=== PATIENT | female | born 1930 | race Caucasian/White ===

== ENCOUNTER 2016-04-17 16:13 | Inpatient (IN) | payer MEDICARE, MEDICAID ==
[~2016-04-17] VITALS: Ht 162.6 cm; Wt 87.8 kg
--- NOTE | ~2016-04-17 | WRIGHTHP ---
[place], [place] PATIENT HISTORY AND PHYSICAL EXAM NAME: ZAC MARY [facility] #: [id number] UNIT #: [id number] ROOM: [facility] DOCTOR: MITZI HAN MD BIRTHDATE: [birth year] DOS: HISTORY OF PRESENT ILLNESS: This patient is very well known to us. She was visiting Dr. Li's office yesterday for an appointment when she was found to be short of breath on exertion and Dr. Li felt that that the patient was in AFib, was sent to the emergency room for evaluation. The patient had paroxysmal atrial fibrillation in remote past, but not recently. She was last evaluated with a stress test in 06/2015 before her knee replacement and that was normal. She noted that for the last few days, she has noticed some increasing shortness of breath and leg edema. She has had chronic lymphedema bilaterally. She denies having any chest pains or palpitations, does not have any fever or chills, does not have any abdominal pain, nausea, any emesis. PAST MEDICAL HISTORY: Significant for; 1. Benign hypertension. 2. Centrilobular emphysema secondary to secondhand smoking. 3. Postmenopausal osteoporosis. 4. Severe degenerative joint disease, status post knee and hip replacements. The last left knee replacement was quite complicated with the redo of the knee from an infection and abscess formation. She has been on antibiotics since August, which Dr. Li has just discontinued. MEDICATIONS: That she has been on are amlodipine 10, atenolol 50, lisinopril 5, Lasix 60, Arthrotec 75, Tylenol 650 p.r.n. and Florastor 250 daily. SOCIAL HISTORY: Nonsmoker, does not use any alcohol. PHYSICAL EXAMINATION: GENERAL: The patient is awake and alert and oriented, in no major distress this morning. VITAL SIGNS: Graphic trend shows that she is afebrile. Pressure is 132/78, at the time she was admitted, her heart rate is in the 90s, and then she was controlled. When I was talking to the patient, she was excited about what had happened in the last 6 months and her heart rate did go up into the 130s and again she remained without any complaints of palpitations. LUNGS: On examination otherwise, lung diminished breath sounds. HEART: Irregular, heart rate in the 90s-130s. ABDOMEN: Obese, soft. EXTREMITIES: Trace edema bilaterally. The left knee seems to have completely healed. LABORATORY DATA: At the time of admission, WBC count is 7.2, hemoglobin 10.6, hematocrit 35.7, platelets 91,000. Chest x-ray shows mild pulmonary venous congestion. Comprehensive, glucose 98, BUN 14. Electrolytes were normal. Three sets of CPKs have been done, they all within normal limits. ASSESSMENT AND PLAN: 1. New onset AFib with history of AFib a few years ago. The patient has been admitted, rate control to be achieved with beta blockers. Consultation with Dr. Burroughs was obtained and they have started her on IV Cardizem. She also has [place], [place] PATIENT HISTORY AND PHYSICAL EXAM NAME: ZAC MARY [facility] #: [id number] UNIT #: [id number] ROOM: [facility] DOCTOR: MITZI HAN MD BIRTHDATE: [birth year] been placed on Eliquis for long-term anticoagulation. 2. Mild congestive heart failure, acute diastolic. Echocardiogram will be ordered. Her last echocardiogram was done in 04/2015 shows normal ejection fraction with diastolic dysfunction. Repeat echo will be ordered this morning. She did diurese and had about 1400 mL output with the Bumex that was given during the night, so we will continue the same diuretics. 3. Benign hypertension with LVH, controlled. 4. Severe osteoarthritis with recent complications following a knee replacement. There does not appear to be any active infection, so no antibiotics have been ordered. 5. Possible UTI, 50,000 colonies of bacteria was seen. Await until I see what the final cultures are before we start her on antibiotics. MITZI HAN MD CM:HISPHYS:PATIENT HISTORY AND PHYSICAL EXAMINATION 1014 MITZI HAN MD 04/18/16 1013 interface
--- NOTE | ~2016-04-17 | PR ---
[place], [place] PROGRESS NOTE [id number] UN[facility] #: [id number] ROOM: 510 DOCTOR: ZAINAB HER MD BIRTHDATE: [birth year] DOS: 04/20/2016 Please make this as an addendum to yesterday's discharge summary and progress note for today. SUBJECTIVE: The patient could not be discharged yesterday because she developed tachycardia up to the heart rate of 150 beats per minute and was held back by her slab installer, Dr. Mondragon. He also added long acting Cardizem to her treatment and her heart rate has improved. OBJECTIVE: VITAL SIGNS: Blood pressure 118/68, heart rate 66 beats per minute, breathing 16 times per minute, temperature 98 degrees Fahrenheit. GENERAL APPEARANCE: The patient is alert and oriented x 3, in no visible distress. HEENT AND NECK: Exam within normal limits. CARDIOVASCULAR SYSTEM: Heart rate is regular in rate and rhythm. S1 and S2 normally audible. LUNGS: Clear to auscultation. ABDOMEN: Soft, nontender. No obvious organomegaly. Bowel sounds are present. EXTREMITIES: Without significant cyanosis or edema. IMPRESSION: 1. The patient with chronic atrial fibrillation with tachycardia yesterday, which is better controlled with oral Cardizem. Dr. Mondragon, her slab installer has given her clearance for discharge to home and will follow her up in the office in 1 week and she will also follow up with her PCP. 2. Acute diastolic type congestive heart failure, resolved with treatment. 3. Benign essential hypertension and LVH with controlled blood pressures. 4. Urinary tract infection with Escherichia coli to be treated with Bactrim-DS for a week. ZAINAB HER MD CM:PNTRANS [id number] ZAINAB HER MD 04/21/16 1002 interface
--- NOTE | ~2016-04-17 | DS ---
[place], [place] DISCHARGE SUMMARY NAME: ZAC MARY UNIT #: [id number] ROOM: 510 DOCTOR: ZAINAB HER MD BIRTHDATE: [birth year] DOS: 04/19/2016 DISCHARGE DIAGNOSES: 1. Chronic atrial fibrillation with tachycardia, now controlled with new medications. The patient anticoagulated with Eliquis for atrial fibrillation. 2. Acute diastolic type CHF, acute on chronic, resolved with treatment. 3. Benign essential hypertension and LVH. 4. Severe osteoarthritis involving multiple joints. 5. Urinary tract infection with E. coli, sensitive to all antibiotics. The patient will be treated with Bactrim-DS for 1 week. FOLLOWUP: The patient to follow up with Dr. Mccurdy, her PCP, and also Dr. Mondragon, senior project engineer within a week after discharge. HOSPITAL COURSE: The patient was admitted by Dr. Mccurdy when she presented with complaints of shortness of breath at her senior project engineer's office, Dr. Li, and was in atrial fibrillation with elevated heart rate. The patient was admitted by Dr. Mccurdy for atrial fibrillation with rapid ventricular response, which was controlled with IV Cardizem by the senior project engineer. Finally, he converted her to a higher-dose of metoprolol and he discontinued her atenolol and heart rates are ranging between 80-120 on the environmental monitoring technician. 1. Chronic atrial fibrillation. The patient was started on Eliquis for anticoagulation by Dr. Mondragon, her senior project engineer. 2. Acute over chronic diastolic type CHF, improved with better controlled of heart rate and blood pressures. The patient diuresed well with IV Bumex. 3. Benign essential hypertension with better controlled blood pressures now. 4. Centrilobular emphysema with chronic shortness of breath secondary to secondhand smoke in the past. Breathing is stable. 5. Severe osteoarthritis involving multiple joints and status post knee replacement. 6. Urinary tract infection with E. coli, 75,000 colonies to be treated with Bactrim-DS at home at the time of discharge. Prescriptions were sent to her pharmacy. [place], [place] DISCHARGE SUMMARY NAME: ZAC MARY UNIT #: [id number] ROOM: 510 DOCTOR: ZAINAB HER MD BIRTHDATE: [birth year] ZAINAB HER MD CM:KAYLA [phone] ZAINAB HER MD 04/19/16 2004 interface
[~2016-04-17 16:13] MED LIST changes: -BUMETANIDE1 MG PO; -CARDIZEM CD120 M2 PO; -ELIQUIS5 M1 PO; -FLORASTOR250 MG PO; -MACROBID100 M1 PO; -TOPROL XL100 MG PO
[2016-04-17 16:15] VITALS: BP 149/86
[2016-04-17 16:42] LABS: BASO # 0.1 10*3/uL (0.0-0.1); BASO % 0.7 % (0.0-1.0); EOS # 0.1 10*3/uL (0.0-0.4); EOS % 1.2 % (1.0-4.0); HEMATOCRIT 35.7 % (37.0-47.0); HEMOGLOBIN 10.6 g/dl (12.0-16.0); LYMPH % 13.7 % (27.0-41.0); MEAN CELL VOLUME 85.2 fl (81.0-99.0); MEAN CORPUSCULAR HGB 25.3 pg (27.0-31.0); MEAN CORPUSCULAR HGB CONC 29.7 g/dl (33.0-37.0); MEAN PLATELET VOLUME 13.1 fl (9.6-12.3); MONO # 0.7 10*3/uL (0.1-1.0); NEUT # 5.4 10*3/uL (2.3-7.9); NEUT % 75.1 % (47.0-73.0); PLATELET COUNT AUTOMATED 91 10*3/uL (130-400); RED BLOOD COUNT 4.19 10*6/uL (4.10-5.10); WHITE BLOOD COUNT 7.2 10*3/uL (4.8-10.8)
[2016-04-17 16:57] LABS: ALBUMIN 3.3 gm/dl (3.1-4.5); ALKALINE PHOSPHATASE 132 U/L (45-117); BILIRUBIN, TOTAL 0.5 mg/dl (0.2-1.0); BUN 14 mg/dl (7-24); CARBON DIOXIDE 28 mmol/L (21-32); CHLORIDE 107 mmol/L (98-107); EST GLOM FILT AFRICAN AMERICAN > 60 ml/min; GLUCOSE 98 mg/dL (65-99); POTASSIUM 4.1 mmol/L (3.5-5.1); SGOT/AST 16 IU/L (3-35); SGPT/ALT 31 U/L (12-78); SODIUM 143 mmol/L (136-145); TOTAL PROTEIN 6.7 gm/dL (6.4-8.2)
[2016-04-17 17:07] LABS: BILIRUBIN NEGATIVE (NEGATIVE); BLOOD TRACE-LYSED (NEGATIVE); CLARITY SL CLOUDY (CLEAR); COLOR YELLOW (YELLOW); GLUCOSE NEGATIVE (NEGATIVE); KETONE TRACE (NEGATIVE); LEUKO ESTERASE TRACE (NEGATIVE); NITRITE NEGATIVE (NEGATIVE); PH 5.5 (5.0-9.0); PROTEIN 1+ (NEGATIVE); SPECIFIC GRAVITY 1.025 (1.005-1.030)
[2016-04-17 17:11] VITALS: BP 147/77
[2016-04-17 17:25] VITALS: BP 143/78
[2016-04-17 17:26] LABS: MUCOUS TRACE; URINE REFLEX COMMENT YES (NO)
[2016-04-17 18:20] VITALS: BP 114/74
[2016-04-17] MEDS ORDERED: FLORASTOR250 MG PO (19:20)
[2016-04-17 20:00] VITALS: BP 130/63
[2016-04-18] VITALS (11 sets, daily range): BP systolic 104–142; BP diastolic 50–72
[2016-04-18 00:51] LABS: CKMB 1.6 ng/ml (0.5-3.6)
[2016-04-18 07:09] LABS: BUN 13 mg/dl (7-24); CARBON DIOXIDE 28 mmol/L (21-32); CHLORIDE 105 mmol/L (98-107); EST GLOM FILT AFRICAN AMERICAN > 60 ml/min; GLUCOSE 90 mg/dL (65-99); POTASSIUM 3.7 mmol/L (3.5-5.1); SODIUM 144 mmol/L (136-145)
[2016-04-18 07:10] LABS: BASO % 0.6 % (0.0-1.0); EOS # 0.1 10*3/uL (0.0-0.4); EOS % 2.6 % (1.0-4.0); HEMATOCRIT 31.5 % (37.0-47.0); HEMOGLOBIN 9.4 g/dl (12.0-16.0); LYMPH # 0.9 10*3/uL (1.3-4.4); LYMPH % 17.5 % (27.0-41.0); MEAN CELL VOLUME 83.8 fl (81.0-99.0); MEAN CORPUSCULAR HGB CONC 29.8 g/dl (33.0-37.0); MEAN PLATELET VOLUME 12.2 fl (9.6-12.3); MONO # 0.5 10*3/uL (0.1-1.0); MONO % 10.2 % (3.0-9.0); NEUT # 3.5 10*3/uL (2.3-7.9); NEUT % 68.7 % (47.0-73.0); PLATELET COUNT AUTOMATED 101 10*3/uL (130-400); RED BLOOD COUNT 3.76 10*6/uL (4.10-5.10); WHITE BLOOD COUNT 5.1 10*3/uL (4.8-10.8)
[2016-04-18 07:52] LABS: CKMB 1.6 ng/ml (0.5-3.6)
[2016-04-18 16:47] LABS: CKMB 1.1 ng/ml (0.5-3.6)
[2016-04-19] VITALS: BP 125/60
[2016-04-19 04:00] VITALS: BP 137/82
[2016-04-19 08:00] VITALS: BP 134/72
[2016-04-19 12:00] VITALS: BP 118/63
[2016-04-19 16:00] VITALS: BP 111/61
[2016-04-19] MEDS ORDERED: TOPROL XL100 MG PO (18:35)
[2016-04-19] MEDS ORDERED: ELIQUIS5 M1 PO (18:36)
[2016-04-19] MEDS ORDERED: BACTRIM DS 8001 TA1 PO (18:43)
[2016-04-19 20:00] VITALS: BP 97/70
[2016-04-20] VITALS: BP 102/58
[2016-04-20 04:00] VITALS: BP 109/56
[2016-04-20 08:00] VITALS: BP 116/62
[2016-04-20 12:00] VITALS: BP 118/68
[2016-04-20] MEDS ORDERED: CARDIZEM CD120 M2 PO (13:52)
[2016-04-20] MEDS ORDERED: BUMETANIDE1 MG PO (14:33)
[2016-06-04] MEDS ORDERED: MACROBID100 M1 PO (11:42)
== END 2016-04-20 14:52 | disposition home or self-care (01) | DRG 308 ==
LOC: ED 16:13 → 5E 17:11 → EDHOLD 17:11 → 5E 18:01
PROVIDERS: Internal Medicine; Nurse Practitioner Family
DX: I48.0 Paroxysmal atrial fibrillation (principal); I50.33 Acute on chronic diastolic (congestive) heart failure; N39.0 Urinary tract infection, site not specified; D64.9 Anemia, unspecified; I48.2 Chronic atrial fibrillation; I11.0 Hypertensive heart disease with heart failure; J43.2 Centrilobular emphysema; M15.9 Polyosteoarthritis, unspecified; B96.20 Unspecified Escherichia coli [E. coli] as the cause of diseases classified elsewhere; K44.9 Diaphragmatic hernia without obstruction or gangrene; Z96.652 Presence of left artificial knee joint; Z96.649 Presence of unspecified artificial hip joint; Z80.9 Family history of malignant neoplasm, unspecified; Z79.899 Other long term (current) drug therapy

== ENCOUNTER → 2016-04-17 | Outpatient (CLI) | payer MEDICARE, MEDICAID ==
[~2016-04-17] MED LIST: AMLODIPINE BESY1 TAB PO; AMLODIPINE BESY10 MG PO; AMLODIPINE BESYL5 MG PO; ANTIVERT/2525 MG PO; ARTHROTEC 75 MG PO; ARTHROTEC50 MG PO; ATENOLOL100 MG PO; ATENOLOL25 MG PO; ATIVAN1 MG PO; BACTRIM DS 8001 TA1 PO; BENADRYL25 M2 PO; BUMETANIDE1 MG PO; CARDIZEM CD120 M2 PO; CEFAZOLIN500 MG IJ; COUMADIN0.5 MG PO; ELIQUIS5 M1 PO; ESIDREX,ORETIC,25 MG PO; FLORASTOR250 MG PO; LASIX40 MG PO; LISINOPRIL5 MG; LISINOPRIL5 MG PO; LOTRISONE 0.05%1 CRE TP; MACROBID100 M1 PO; MECLIZINE HCL25 M1 PO; NORVASC2.5 MG PO; NORVASC5 MG PO; PRILOSEC20 MG PO; RABEPRAZOLE PO; Rimactane,Rifa300 MG PO; TENORMIN50 MG PO; TOPROL XL100 MG PO; TYLENOL EXTRA500 M2 PO; TYLENOL325 M1 PO; ULTRAM50 MG PO; ZOFRAN ODT4 MG SL; ZOFRAN4 MG PO; ZYVOX600 M1 IV; [UNRECOGNIZED DRUG - OTHER] PO
== END | disposition home or self-care (01) ==
LOC: CARD 15:15
DX: R00.1 Bradycardia, unspecified (principal)

== ENCOUNTER → 2016-05-02 | Outpatient (CLI) | payer MEDICARE, MEDICAID ==
[~2016-05-02] MED LIST changes: +BUMETANIDE1 MG PO; +CARDIZEM CD120 M2 PO; +ELIQUIS5 M1 PO; +FLORASTOR250 MG PO; +MACROBID100 M1 PO; +TOPROL XL100 MG PO
[2016-05-02 12:09] LABS: ALBUMIN 3.5 gm/dl (3.1-4.5); ALKALINE PHOSPHATASE 101 U/L (45-117); BILIRUBIN, TOTAL 0.4 mg/dl (0.2-1.0); BUN 19 mg/dl (7-24); CARBON DIOXIDE 29 mmol/L (21-32); CHLORIDE 104 mmol/L (98-107); EST GLOM FILT AFRICAN AMERICAN > 60 ml/min; GLUCOSE 100 mg/dL (65-99); POTASSIUM 4.6 mmol/L (3.5-5.1); SGOT/AST 15 IU/L (3-35); SGPT/ALT 20 U/L (12-78); SODIUM 141 mmol/L (136-145)
== END | disposition home or self-care (01) ==
LOC: LAB 11:11
PROVIDERS: Internal Medicine Cardiovascular Disease
DX: I50.30 Unspecified diastolic (congestive) heart failure (principal); I49.9 Cardiac arrhythmia, unspecified; I48.2 Chronic atrial fibrillation

== ENCOUNTER → 2017-07-03 | Outpatient (CLI) | payer MEDICARE ==
[2017-07-03 10:24] LABS: BASO # 0.1 10*3/uL (0.0-0.1); BASO % 0.9 % (0.0-1.0); EOS # 0.1 10*3/uL (0.0-0.4); EOS % 1.9 % (1.0-4.0); HEMATOCRIT 41.6 % (37.0-47.0); HEMOGLOBIN 12.2 g/dl (12.0-16.0); LYMPH # 1.1 10*3/uL (1.3-4.4); LYMPH % 16.6 % (27.0-41.0); MEAN CELL VOLUME 83.9 fl (81.0-99.0); MEAN CORPUSCULAR HGB 24.6 pg (27.0-31.0); MEAN CORPUSCULAR HGB CONC 29.3 g/dl (33.0-37.0); MEAN PLATELET VOLUME 12.5 fl (9.6-12.3); MONO # 0.6 10*3/uL (0.1-1.0); MONO % 9.4 % (3.0-9.0); NEUT # 4.5 10*3/uL (2.3-7.9); NEUT % 70.7 % (47.0-73.0); PLATELET COUNT AUTOMATED 121 10*3/uL (130-400); RED BLOOD COUNT 4.96 10*6/uL (4.10-5.10); RED CELL DISTRI WIDTH 15.9 % (0-14.5); WHITE BLOOD COUNT 6.4 10*3/uL (4.8-10.8)
[2017-07-03 10:39] LABS: BUN 14 mg/dl (7-24); CHLORIDE 105 mmol/L (98-107); CREATININE 0.67 mg/dL (0.55-1.02); POTASSIUM 3.9 mmol/L (3.5-5.1); SODIUM 141 mmol/L (136-145)
== END | disposition home or self-care (01) ==
LOC: LAB 09:52
PROVIDERS: Internal Medicine
DX: Z13.220 Encounter for screening for lipoid disorders (principal); Z13.21 Encounter for screening for nutritional disorder; N39.0 Urinary tract infection, site not specified; E55.9 Vitamin D deficiency, unspecified; R53.81 Other malaise

== ENCOUNTER → 2017-07-04 | Outpatient (CLI) | payer MEDICARE ==
[2017-07-04 11:42] LABS: BILIRUBIN NEGATIVE (NEGATIVE); BLOOD NEGATIVE (NEGATIVE); CLARITY SL CLOUDY (CLEAR); COLOR YELLOW (YELLOW); GLUCOSE NEGATIVE (NEGATIVE); KETONE TRACE (NEGATIVE); LEUKO ESTERASE NEGATIVE (NEGATIVE); NITRITE NEGATIVE (NEGATIVE); PH 5.5 (5.0-9.0); SPECIFIC GRAVITY 1.025 (1.005-1.030); UROBILINOGEN 0.2 E.U./dl (0.2-1.0)
[2017-07-04 13:29] LABS: BACTERIA 2+; CALCIUM OXALATE CRYSTALS 2+; EPITHELIAL CELLS 20-30
== END | disposition home or self-care (01) ==
LOC: LAB 11:10
PROVIDERS: Internal Medicine
DX: Z13.21 Encounter for screening for nutritional disorder (principal); Z13.220 Encounter for screening for lipoid disorders; N39.0 Urinary tract infection, site not specified; R53.81 Other malaise; E55.9 Vitamin D deficiency, unspecified

== ENCOUNTER 2017-12-29 06:31 | Inpatient (IN) | payer MEDICARE ==
[~2017-12-29] VITALS: Ht 165.1 cm; Wt 96.3 kg
[2017-12-29] VITALS (8 sets, daily range): BP systolic 124–166; BP diastolic 72–91
--- NOTE | ~2017-12-29 | PR ---
[place], [place] PROGRESS NOTE NAME: ZAC MARY [facility] #: [id number] UNIT #: [id number] ROOM: 520 DOCTOR: MITZI HAN MD BIRTHDATE: [birth year] DOS: 12/30/2017 SUBJECTIVE: The patient is doing much better than yesterday. Her cough is almost completely gone. OBJECTIVE: VITAL SIGNS: Graphic trend shows a pressure of 126/65, pulse of 73, respirations 18, temperature 98.1. LUNGS: Diminished breath sounds, fairly clear this morning. HEART: Irregular, heart rate in the 70s. ABDOMEN: Obese, soft. EXTREMITIES: Without decreased edema noted. LABORATORY DATA: No basic metabolic panel is available today. ASSESSMENT AND PLAN: 1. Congestive heart failure, diastolic, acute. 2. Hypoxic respiratory failure, still requiring oxygen supplementation about 4 liters. 3. Chronic atrial fibrillation with long-term use of anticoagulants controlled heart rate. 4. Cough with basilar atelectasis, possibly hiding pneumonia, on antibiotics. 5. Urinary tract infection with gram-negative bacteria, also on antibiotics. Complete culture results are not available yet. For right now, continue diuretics. Consultation with Dr. Burroughs will be obtained. Echocardiogram is ordered. MITZI HAN MD CM:PNTRANS 7 08 MITZI HAN MD 12/30/172206 interface
--- NOTE | ~2017-12-29 | PR ---
[place], [place] PROGRESS NOTE [id number] UNIT #: [id number] ROOM: 520 DOCTOR: ZAINAB HER MD BIRTHDATE: [birth year] DOS: 01/03/2018 SUBJECTIVE: The patient is feeling well. OBJECTIVE: VITAL SIGNS: Blood pressure is 124/62, heart rate of 60 beats per minute, going up to 150 beats per minute; breathing normally, and afebrile. GENERAL APPEARANCE: The patient is alert and oriented x 3, in no visible distress. HEENT AND NECK: Exam within normal limits. CARDIOVASCULAR SYSTEM: Heart rate is regular in rate and rhythm. S1 and S2 normally audible. LUNGS: Clear to auscultation. ABDOMEN: Soft, nontender. No obvious organomegaly. Bowel sounds are present. EXTREMITIES: Without significant cyanosis or edema. IMPRESSION: 1. The patient with chronic atrial fibrillation with paroxysmal tachycardia for which the care administrative tech added diltiazem for better heart rate control. 2. Acute hypoxemic respiratory failure, improved with treatment. The patient is on oxygen and bronchodilators. 3. Acute asthmatoid wheezing, being treated with bronchodilators. Breathing is improved. 4. Acute diastolic type congestive heart failure, improved with diuretics. ZAINAB HER MD CM:PNTRANS [phone] ZAINAB HER MD 01/03/182122 interface
--- NOTE | ~2017-12-29 | PR ---
[place], [place] PROGRESS NOTE NAME: ZAC MARY [facility] #: [id number] UNIT #: [id number] ROOM: 520 DOCTOR: MITZI HAN MD BIRTHDATE: [birth year] DOS: SUBJECTIVE: The patient is sitting up in her chair this morning. OBJECTIVE: VITAL SIGNS: Graphic trend shows a pressure of 129/72, pulse of 86, respirations 20, and temperature 97.6. LUNGS: Diminished breath sounds, scattered rales still present. HEART: Irregular, heart rate controlled. ABDOMEN: Obese. EXTREMITIES: Decreasing edema. LABORATORY DATA: Urine culture showed E. coli. BMP: Glucose 117, BUN 17, creatinine 0.63, sodium 139, potassium 3.9, chloride 99, bicarbonate 35. WBC count is 7.6, hemoglobin 11.6, hematocrit 40.4, and platelets were 106. ASSESSMENT AND PLAN: 1. Acute diastolic congestive heart failure, on diuretics. 2. Chronic atrial fibrillation, controlled. Appreciate Dr. Mondragon's input. 3. Cough with acute tracheobronchitis with basilar atelectasis, on IV antibiotics. 4. Urinary tract infection with Escherichia coli, on antibiotics. 5. Hypoxic respiratory failure, still requiring oxygen, may need oxygen supplementation at home. MITZI HAN MD CM:PNTRANS [id number] MITZI HAN MD 12/31/17 1241 interface
--- NOTE | ~2017-12-29 | PR ---
[place], [place] PROGRESS NOTE [id number] UN[facility] #: [id number] ROOM: 520 DOCTOR: ROSI KC MD,MEGHANN BIRTHDATE: [birth year] DOS: 01/04/2018 SUBJECTIVE: The patient was still noted with symptoms of dyspnea and tachycardia with walking. She has not been noted the oxygen desaturation. Denies symptoms of chest pain, was seen by the Cardiology Service for further medical management of atrial fibrillation. OBJECTIVE: VITAL SIGNS: For the patient this morning, normal temperature, respiratory rate 18, heart rate 70, blood pressure 134/78. Pulse oxygen saturation on 2 liters and 97% saturation. HEENT: No acute change. NECK: Supple. CARDIOVASCULAR: S1, S2 audible. LUNGS: The patient noted without any wheezing or crackles. ABDOMEN: Soft, nontender. EXTREMITIES: With mild edema. IMPRESSION: 1. Congestive heart failure with edema of the lower extremity. 2. Atrial fibrillation, intermittent rapid ventricular response with walking. 3. Resolving acute bronchitis. PLAN OF MANAGEMENT: Discharge planning for the patient after consultation with the Cardiology Services recommendation. In the meantime, patient's current therapy, plan of management, other care. Usual treatment, other supportive care and therapies. MEGHANN ARANDA MD CM:PNTRANS [phone] MEGHANN KC MD 01/13/18 0916 interface
--- NOTE | ~2017-12-29 | PR ---
[place], [place] PROGRESS NOTE NAME: ZAC MARY UNIT #: [id number] ROOM: 520 DOCTOR: ROSI KC MD,MEGHANN BIRTHDATE: [birth year] DOS: 01/03/2018 SUBJECTIVE: The patient has been noted comfortable at this time, resting. The patient sitting on the chair. She stated that shortness of breath has been improving gradually. The coughing has been noted with a small amount of sputum expectoration, was not noted excessive chest congestion. Denies symptoms of nausea or vomiting. Denies symptoms of abdominal pain. The patient denies symptoms of headache or diplopia. Denies any pain of the lower extremity. Extremity edema of the patient has been gradually subsiding. REVIEW OF SYSTEMS: Remaining systems reviewed. They were noted all negative. OBJECTIVE: VITAL SIGNS: Normal temperature, respiratory rate 18, heart rate 83, blood pressure 136/78-134/97. Pulse oxygen saturation on 2 liters 96% saturation, decreased to 84% with ambulation, but the heart rate noted significantly increased to 156 with atrial fibrillation. HEENT: Irregular rhythm. S1, S2 audible with tachycardia noted at the present time after walking, likely short distance. LUNGS: The patient noted without any wheezing or crackles. ABDOMEN: Soft, nontender. EXTREMITIES: Shows 1-2+ pitting edema. VISIBLE SKIN: No lesions or rashes. CENTRAL NERVOUS SYSTEM: Nonfocal. IMPRESSION: 1. The patient with atrial fibrillation, rapid ventricular response with muscle deconditioning as well. 2. Resolving acute bronchitis. The patient with current present plan of management and the exacerbation of chronic obstructive pulmonary disease. PLAN OF MANAGEMENT: Continue the current plan of management. The patient maximize the cardiopulmonary status. The patient would not be discharged home today because of the current worsening of the heart rate, noted atrial fibrillation with rapid ventricular response and persistent hypoxia with exertion. She was ordered home oxygen assessment and after walking a few feet, the patient developed symptoms including shortness breath with atrial fibrillation and rapid ventricular response. Cardiology is managing the patient for that reason. The congestive heart failure seemed to be resolving with improving edema of the lower extremities. Other supportive therapy, plan of management continue. [place], [place] PROGRESS NOTE NAME: ZAC MARY UNIT #: [id number] ROOM: 520 DOCTOR: MEGHANN PAREKH MD BIRTHDATE: [birth year] MEGHANN ARANDA MD CM:PNTRANS [phone] MEGHANN KC MD 01/13/18 0915 interface
--- NOTE | ~2017-12-29 | PR ---
[place], [place] PROGRESS NOTE [id number] UNIT #: [id number] ROOM: 520 DOCTOR: ZAINAB HER MD BIRTHDATE: [birth year] DOS: 01/02/2018 SUBJECTIVE: The patient continues to feel better. OBJECTIVE: VITAL SIGNS: Blood pressure 139/75, heart rate 87 beats per minute, breathing 18 times per minute, temperature 98 degrees Fahrenheit. GENERAL APPEARANCE: The patient is alert and oriented x 3, in no visible distress, generalized weakness. HEENT AND NECK: Exam within normal limits. CARDIOVASCULAR SYSTEM: Heart rate is regular in rate and rhythm. S1 and S2 normally audible. LUNGS: Clear to auscultation. ABDOMEN: Soft, nontender. No obvious organomegaly. Bowel sounds are present. EXTREMITIES: Without significant cyanosis or edema. IMPRESSION: 1. The patient with acute diastolic type congestive heart failure, treated with diuretics. 2. Chronic atrial fibrillation with controlled heart rates. Dr. Mondragon following the rn forensic. 3. Acute asthmatoid wheezing, treated and followed. 4. Urinary tract infection with Escherichia coli, being treated with antibiotics. 5. Acute hypoxemic respiratory failure, being treated with oxygen and bronchodilators. ZAINAB HER MD CM:PNTRANS [phone] ZAINAB HER MD 01/03/18 0252 interface
--- NOTE | ~2017-12-29 | PR ---
[place], [place] PROGRESS NOTE NAME: ZAC MARY UNIT #: [id number] ROOM: 520 DOCTOR: MOHINDER DEUTSCH MD BIRTHDATE: [birth year] DOS: 01/02/2018 REASON FOR VISIT: Congestive heart failure. SUBJECTIVE: The patient is feeling better. She is anticipating discharge today. Denies any chest pain or palpitations. Breathing is better. No dizziness, no PND, no orthopnea. REVIEW OF SYSTEMS: Review of the 8 systems negative except as mentioned above. PHYSICAL EXAMINATION: VITAL SIGNS: Blood pressure 132/80, pulse 88, respiration rate is 18. RHYTHM STRIPS: The patient in atrial fibrillation with rate around 95, occasional rapid ventricular rate in low 100s. HEENT: Pupils are round and equal. No jaundice. Tongue was moist and pharynx clear. NECK: Supple. No distended neck veins, no carotid bruit. CHEST: Symmetrical. LUNGS: Few rhonchi, good air entry bilaterally. HEART: Irregularly irregular, grade 1/6 systolic murmur. ABDOMEN: Not examined. EXTREMITIES: Showed trace edema. Distal pulses palpable. SKIN: Warm and dry. No cyanosis, no clubbing. RECTAL: Deferred. GENITOURINARY: Deferred. NEUROLOGIC: The patient is alert, oriented. No focal neurologic deficit. IMPRESSION: 1. Acute on chronic diastolic heart failure, stable. 2. Chronic atrial fibrillation, rate controlled on Eliquis anticoagulation. 3. Pulmonary hypertension. 4. Hypertension. RECOMMENDATIONS: 1. Continue current medications. 2. If it is okay with Dr. Bucio, the patient can be discharged from the cardiac standpoint and follow up with [facility] in 2 to 3 weeks. Above conditions discussed with the patient and her family member who is at bedside, and all questions are answered. [place], [place] PROGRESS NOTE NAME: ZAC MARY UNIT #: [id number] ROOM: 520 DOCTOR: MOHINDER DEUTSCH MD BIRTHDATE: [birth year] MOHINDER DEUTSCH MD CM:PNTRANS 54 MOHINDER DEUTSCH MD 01/03/185 interface
--- NOTE | ~2017-12-29 | DS ---
[place], [place] DISCHARGE SUMMARY NAME: ZAC MARY UNIT #: [id number] ROOM: 520 DOCTOR: MITZI HAN MD BIRTHDATE: [birth year] DOS: 01/04/2018 DIAGNOSES: 1. Acute diastolic congestive heart failure. 2. Acute asthmatic bronchitis. 3. Benign hypertension. 4. Atrial fibrillation with rapid ventricular response. 5. Primary osteoarthritis, multiple joints, status post knee and hip replacements. 6. Centrilobular emphysema, did not require oxygen supplementation upon discharge. 7. Hypoxic respiratory failure. 8. Urinary tract infection with Escherichia coli. HOSPITAL COURSE: This patient is very well known to us, comes in with complaints of difficulty breathing. Please refer to H and P for details. After admission, the patient was placed on IV diuretics and IV antibiotics. Urine culture was noted to have E. coli. Consultation with Cardiology, Dr. Burroughs's group was obtained, agreed on the current treatment plan. With IV diuretics, the patient seems to be improving, but continued to have a cough that is productive of scant amounts of sputum and with bronchospasm. The patient was placed on IV steroids. Dr. Bucio was consulted and did not require a bronchoscopy. The patient did improve with steroids. Bronchospasm seems to be resolving now. Leg edema has resolved. Heart rate did go up, most likely from breathing treatments, so the Cardizem dosage was increased. Heart rate is better controlled now. The breathing treatments have been discontinued. The patient is overall stable and can be discharged to home today to be followed up as an outpatient. DISCHARGE MEDICATIONS: Include Eliquis 5 mg twice a day, metoprolol 100 b.i.d., diltiazem 120 b.i.d., lisinopril 5 mg daily, spironolactone 25 mg daily, Arthrotec 1 tablet daily, Tylenol 1000 mg at bedtime, Bumex 1 mg daily, Aciphex 10 mg daily, Florastor 250 daily, Ceftin 250 twice a day for 5 days. [place], [place] DISCHARGE SUMMARY NAME: ZAC MARY UNIT #: [id number] ROOM: 520 DOCTOR: MITZI HAN MD BIRTHDATE: [birth year] MITZI HAN MD CM:KAYLA 08 [phone] MITZI HAN MD 01/04/18 1039 interface
--- NOTE | ~2017-12-29 | EKG ---
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
--- NOTE | ~2017-12-29 | PR ---
[place], [place] PROGRESS NOTE NAME: ZAC MARY [facility] #: [id number] UNIT #: [id number] ROOM: 520 DOCTOR: MITZI HAN MD BIRTHDATE: [birth year] DOS: SUBJECTIVE: The patient does not have any new complaints, but she still has a cough. She did ambulate with therapy. OBJECTIVE: VITAL SIGNS: Pressure is 132/82. Pulse is 66. Respirations 20. Temperature 97.3. LUNGS: Diminished breath sounds, scattered rhonchi and wheezes. HEART: Regular. ABDOMEN: Soft. EXTREMITIES: Trace edema. LABORATORY DATA: Urine culture showed E. coli. No labs available. Echocardiogram shows normal LV function with diastolic dysfunction. ASSESSMENT AND PLAN: 1. Acute diastolic congestive heart failure, on IV diuretics. 2. Benign hypertension with left ventricular hypertrophy. Appreciate Dr. Mondragon's input. 3. Chronic atrial fibrillation, on long-term use of anticoagulants, controlled heart rate. 4. Bilateral atelectasis, possible underlying pneumonia with continued bronchospasm. The patient will be started on low dose steroids, breathing treatments and consultation with Dr. Bucio for bronchoscopy. 5. Urinary tract infection, on IV antibiotics. MITZI HAN MD CM:NIYAH 4 08 MITZI HAN MD 01/01/182205 interface
--- NOTE | ~2017-12-29 | WRIGHTHP ---
[place], [place] PATIENT HISTORY AND PHYSICAL EXAM NAME: ZAC MARY [facility] #: [id number] UNIT #: [id number] ROOM: 520 DOCTOR: MITZI HAN MD BIRTHDATE: [birth year] DOS: 12/29/2017 HISTORY OF PRESENT ILLNESS: The patient was seen on 12/29/2017 in the Emergency Room. This patient is 87 years old. She has had a slight cough for the last several days slowly with increasing shortness of breath to the point that she woke up on Thursday and noticed that she could not get her breath. She was unable to sleep at night. She was sitting up in her bed. She also has had increased leg edema, so she decided to come into the ER. She denies having any chest pains or palpitations, does not have any fever or chills, does not have any abdominal pain, nausea, and emesis. Appetite has been fair. PAST MEDICAL HISTORY: Significant for; 1. Last hospitalization in 04/2016, that time she was admitted with chronic AFib with RVR. 2. Diastolic CHF. 3. Benign hypertension. 4. Primary osteoarthritis, multiple joints with knee and hip replacements. 5. History of centrilobular emphysema from secondhand smoking. MEDICATIONS: She is on are Eliquis 5 b.i.d., Tylenol 1000 at bedtime, Bumex 1 mg daily, Arthrotec 75 daily, diltiazem 120 daily, lisinopril 5 daily, metoprolol 100 mg twice a day, Aciphex 20 daily, Florastor 250 daily. SOCIAL HISTORY: Nonsmoker, does not use any alcohol. She lives at home in an apartment. PHYSICAL EXAMINATION: VITAL SIGNS: Graphic trend shows a pressure of 126/65, pulse of 80, respirations 20, temperature 98.1. LUNGS: Diminished breath sounds, scattered rales bilaterally. HEART: Irregular, heart rate in the low 70s. ABDOMEN: Obese, soft, nontender. EXTREMITIES: About 2-3+ brawny edema. SKIN: Pretty thick. There is some discoloration noticed of the skin. GENERAL: Awake and alert and oriented, in moderate respiratory distress. NECK: JVD positive. BACK: She is unable to lie back flat. ASSESSMENT AND PLAN: 1. An 87-year-old presents with cough and shortness of breath from underlying acute diastolic congestive heart failure. The patient will be admitted to monitored floor and IV diuretics ordered. 2. Chronic atrial fibrillation, controlled heart rate. Continue Eliquis and Cardizem and beta blockers. Echocardiogram will be ordered. 3. Possibility of urinary tract infection. Urine culture is sent. 4. Benign hypertension, controlled. Check echocardiogram to rule out left ventricular dysfunction. [place], [place] PATIENT HISTORY AND PHYSICAL EXAM [facility]: [id number] #[facility] [id number] [facility] DOCTOR: MITZI HAN MD BIRTHDATE: [birth year] MITZI HAN MD CM:HISPHYS:PATIENT HISTORY AND PHYSICAL EXAMINATION 1 8 MITZI HAN MD 12/30/17 0827 interface
--- NOTE | ~2017-12-29 | PR ---
[place], [place] PROGRESS NOTE NAME: ZAC MARY UNIT #: [id number] ROOM: 520 DOCTOR: GET VERA,MOHINDER BIRTHDATE: [birth year] DOS: 01/03/2018 CARDIOLOGY FOLLOWUP VISIT NOTE REASON FOR VISIT: Atrial fibrillation. HISTORY OF PRESENT ILLNESS: The patient is feeling much better. She is anticipating discharge home today. The patient was ambulated today to check for her oxygen saturation and need for any home oxygen. During her ambulation, her heart rate went up to 140s and 150s and hence the discharge was held, but she denies any chest pain or palpitations. No PND, no orthopnea. No nausea or vomiting. No hematuria or dysuria. No fever or chills. REVIEW OF SYSTEMS: Review of the 10 system negative except as mentioned above. RHYTHM STRIPS: The patient has atrial fibrillation with intermittent rapid ventricular rate with ambulation. PHYSICAL EXAMINATION: VITAL SIGNS: Blood pressure 136/78, pulse 68, respiration rate is 18, and weight 96.7 kilos. GENERAL: Alert, comfortable, in no acute distress. HEAD AND NECK: Supple, no distended neck veins, no carotid bruit. CHEST: Symmetrical, nontender. LUNGS: Few scattered rhonchi. HEART: Irregularly irregular, grade 1/6 systolic murmur. No palpable thrills. ABDOMEN: Obese, nontender. Bowel sounds normal. EXTREMITIES: Showed 1 to 2+ edema. Distal pulses are fair. SKIN: Warm and dry. No cyanosis. RECTAL: Deferred. GENITOURINARY: Deferred. MEDICATIONS: Reviewed. ALLERGIES: Reviewed. LABORATORY DATA: Reviewed. IMPRESSION: 1. Acute on chronic diastolic heart failure, improved. 2. Chronic atrial fibrillation with rapid ventricular rate during ambulation. 3. Chronic obstructive pulmonary disease exacerbation. 4. Pulmonary hypertension. 5. Hypertension. 6. Urinary tract infection. RECOMMENDATIONS: 1. Increase her Cardizem to 120 mg twice a day and monitor heart rate and blood pressures and continue her metoprolol and Eliquis. 2. If the heart rates are relatively stable tomorrow, she can be discharged [place], [place] PROGRESS NOTE NAME: ZAC MARY UNIT #: [id number] ROOM: 520 DOCTOR: GET VERA,MOHINDER BIRTHDATE: [birth year] home. 3. The reason for rapid heart rate was discussed with ambulation. 4. There is no family at bedside at the time of my examination. MOHINDER DEUTSCH MD CM:NIYAH [id number] MOHINDER DEUTSCH MD 01/04/18 0033 interface
--- NOTE | ~2017-12-29 | PR ---
[place], [place] PROGRESS NOTE [id number] UN[facility] #: [id number] ROOM: 520 DOCTOR: MITZI HAN MD BIRTHDATE: [birth year] DOS: SUBJECTIVE: The patient is doing pretty well. Does not have any new complaints. She did walk with respiratory therapy yesterday without oxygen, but did have some tachycardia and so the breathing treatment was canceled. Dr. Negrete did give her an extra dose of Cardizem and her heart rate seems to be better controlled this morning. OBJECTIVE: VITAL SIGNS: Graphic trend shows a pressure of 136/61, pulse of 70, respirations 18, and temperature of 97.6. LUNGS: Diminished breath sounds. HEART: Irregular in the low 90s. ABDOMEN: Obese. EXTREMITIES: Decreasing edema. ASSESSMENT AND PLAN: 1. Acute diastolic congestive heart failure, resolved. 2. Acute bronchitis with bronchospasm, improved with IV steroids and she did not require a bronchoscopy. 3. Benign hypertension, controlled. 4. Chronic atrial fibrillation with better control and her heart rate is most likely from the breathing treatments, which will be discontinued. 5. Urinary tract infection with Escherichia coli. The patient will be discharged to home today on Ceftin as well as a tapering dose of prednisone. MITZI HAN MD CM:PNTRANS [id number] MITZI HAN MD 01/27/18 0512 interface
--- NOTE | ~2017-12-29 | PR ---
[place], [place] PROGRESS NOTE NAME: ZAC MARY [facility] #: [id number] UNIT #: [id number] ROOM: 520 DOCTOR: MOHINDER DEUTSCH MD BIRTHDATE: [birth year] DOS: 01/04/2018 REASON FOR VISIT: Atrial fibrillation. SUBJECTIVE: The patient is feeling better. Her resting heart rates are normal and while ambulation, heart rates are slightly still going up. She is anticipating discharge home today. Denies any chest pain or palpitations. Still having some back pain and knee pains. No PND, no orthopnea, no chest pains. REVIEW OF SYSTEMS: Review of the 8 systems negative except as mentioned above. PHYSICAL EXAMINATION: VITAL SIGNS: Blood pressure 134/78, pulse 72, respiratory rate 18. RHYTHM STRIPS: The patient in atrial fibrillation with occasional rapid ventricular rate. GENERAL: Alert, comfortable, in no acute distress. HEENT: Pupils are equal, no jaundice. Tongue was moist. NECK: Supple, no distended neck veins, no carotid bruit. CHEST: Nontender. LUNGS: Few scattered rhonchi. Fair air entry bilaterally. HEART: Irregularly irregular, grade 1/6 systolic murmur. ABDOMEN: Obese. Bowel sounds normal. EXTREMITIES: Showed 1-2+ pitting edema. Distal pulses are fair. SKIN: Warm and dry. No cyanosis, no clubbing. RECTAL: Deferred. MEDICATIONS AND ALLERGIES: Reviewed. LABORATORY DATA: Reviewed as available. IMPRESSION: 1. Atrial fibrillation with intermittent rapid ventricular rate. 2. Moderate pulmonary hypertension. 3. Chronic obstructive pulmonary disease exacerbation. 4. Rfzwb-[id number]-[id number] diastolic heart failure. 5. Hypertension. 6. Urinary tract infection. 7. Left atrial enlargement. RECOMMENDATIONS: The patient is ambulating in the hallway. Initially, heart rates are around 110-115. Towards the end of her walk, she did reach around 140s and also 150 for a few seconds. Add digoxin 0.125 mg daily and also give one dose of 0.25 mg IV today. Heart rates are relatively stable. She can be discharged home today. I would like to refer her to cardiac rehab as an outpatient. We will continue rest of the cardiac medications and as her blood pressure tolerates, increase her Cardizem to 360 or 420 mg. Follow up with Dr. Mondragon in a few weeks after [place], [place] PROGRESS NOTE NAME: ZAC MARY UNIT #: [id number] ROOM: 520 DOCTOR: GET VERA,MOHINDER BIRTHDATE: [birth year] discharge. Rest of above treatment was discussed with the patient and her family member who is at bedside and all questions answered. Her activity is limited at home and she walks only a few feet due to her musculoskeletal pains and also she uses a cane to help her walk and patient understood that she will get some short of breath and rapid heart rate due to her mild deconditioning and also her valvular heart disease and weight and this can improve gradually with physical therapy. MOHINDER DEUTSCH MD CM:NIYAH [id number] MOHINDER DEUTSCH MD 01/11/18 1043 interface
--- NOTE | ~2017-12-29 | CON ---
[place], [place] REPORT OF CONSULTATION NAME: ZAC MARY [facility] #: [id number] UNIT #: [id number] ROOM: 520 DOCTOR: ROSI KC MDMEGHANN BIRTHDATE: [birth year] DOS: 01/02/2018 PULMONARY CONSULTATION, EVALUATION, MANAGEMENT CONSULTATION REQUESTED BY: Delia Mccurdy MD REASON FOR CONSULTATION: Possible consideration of bronchoscopy. HISTORY OF PRESENT ILLNESS: This is an 87-year-old white female patient known with a cardiac problem and presented to the hospital as the patient has been noted with increased coughing and chest congestion, which has been ongoing for several days. She was also noted with shortness of breath that worsened significantly. Her daughter is an RN. She has called her and asked her bring her to the hospital. The patient was taken to Emergency where she had been assessed and currently being treated. The patient's cough was noted essentially nonproductive, currently reported productive in the last 24 hours. She has been noted with reduction in shortness of breath. There were no symptoms of wheezing, which has been present at this time, previously described. Denies symptoms of chest pain at this time. REVIEW OF SYSTEMS: CONSTITUTIONAL SYMPTOMS: Fatigue and tiredness noted. Denies symptoms of fever or chills. EYES: Denies any burning, redness, or tenderness. EARS, NOSE, THROAT SYMPTOMS: Denies sore throat, hoarseness, otalgia, postnasal drainage or epistaxis. CARDIOVASCULAR: Denies anginal pain or palpitation. Noted increased edema of bilateral lower extremities, which was significant. GASTROINTESTINAL: Denies dysphagia, nausea, vomiting, diarrhea, abdominal pain, hematemesis, melena, or hematochezia. SKIN: Denies abnormal lesions or rashes. CENTRAL NERVOUS SYSTEM: Denies any dizziness, headache, diplopia, or syncopal episode. Remaining systems were reviewed. They were noted all negative. PAST MEDICAL HISTORY: 1. Chronic atrial fibrillation. 2. History of congestive heart failure, diastolic dysfunction. 3. Benign essential hypertension. 4. Osteoarthritis. 5. Chronic obstructive pulmonary disease related to secondhand tobacco use. PAST SURGICAL HISTORY: Reported with bilateral knee replacement, revision of the left knee for the patient was also done, and bilateral hip replacement. SOCIAL HISTORY: The patient currently , lives still by herself independently. There was no history of primary tobacco use, but noted secondary tobacco exposure from her for several years. [place], [place] REPORT OF CONSULTATION NAME: ZAC MARY [facility] #: [id number] UNIT #: [id number] ROOM: [facility] DOCTOR: MEGHANN PAREKH MD BIRTHDATE: [birth year] FAMILY HISTORY: Essentially noted noncontributory. CURRENT MEDICATIONS: Administered for this patient on this hospitalization noted as IV Solu-Medrol, Bumex 1 mg daily, Aldactone, lactobacillus, Cardizem-CD, Protonix, metoprolol succinate, Eliquis, lisinopril, Rocephin, and Zithromax. DRUG ALLERGIES: No known drug allergies. PHYSICAL EXAMINATION: GENERAL: This is an 87-year-old white female, noted awake and alert without any acute distress. Height of 5 feet 5 inches, weight of 218 pounds, BMI 36. VITAL SIGNS: The patient otherwise noted normal temperature, respiratory rate 18-20, heart rate of 87-102, and blood pressure 132/80 to 139/77. Intake for the patient was recorded as 1400 mL, output 1920 mL, negative fluid about 447 mL. Pulse ox saturation on 3 liters nasal cannula was recorded 94% saturation. HEENT: Examination shows head was atraumatic. Eyes nonicterus. NECK: Supple. CARDIOVASCULAR: S1, S2 is audible. LUNGS: The patient was noted with occasional wheezing. No crackles. ABDOMEN: Soft and nontender. Bowel sounds present. EXTREMITIES: The patient noted 1-2+ pitting edema. VISIBLE SKIN: No lesions or rashes. MUSCULOSKELETAL: No deformities except mild senile kyphosis. CENTRAL NERVOUS SYSTEM: Cranial nerves 2-12 intact. LABORATORY DATA: CBC of the patient that was done on 12/29/2017 was essentially noted as hemoglobin 11.1, otherwise normal CBC. CMP of the patient on 12/29/2017, normal BUN and creatinine. Glucose minimally at 126. The CBC of the patient on 12/31/2017 showed similar results. Chest x-ray of the patient that were reviewed on 12/29/2017 was noted with hiatal hernia, questionable infiltration with pleural fluid in the left side. CT scan of the chest was done, large hiatal hernia, elevation of left hemidiaphragm. There were no acute pulmonary infiltration. Other abnormal findings including pleural fluid. IMPRESSION: 1. The patient who has been currently admitted to the hospital noted with acute exacerbation of chronic obstructive pulmonary disease, acute bronchitis, currently noted productive cough and feeling better in the last 24 hours. 2. The patient with history of congestive heart failure with diastolic dysfunction, acute decompensation as well. 3. Chronic large hiatal hernia. PLAN OF MANAGEMENT: Continue diuretics, bronchodilators and current dose of steroids and the antibiotics. I would not recommend any change in treatment. The patient could be considered discharge in the next 24 hours on oral antibiotic, tapering prednisone. Rather therapeutic bronchoscopy at this time would not be needed. Monitoring will be done for the patient with assessment was recommended as an outpatient. In addition, treatment changes will be ordered based on progression of the illness. [place], [place] REPORT OF CONSULTATION NAME: ZAC MARY UNIT #: [id number] ROOM: [facility] DOCTOR: MEGHANN PAREKH MD BIRTHDATE: [birth year] MEGHANN ARANDA MD CM:CONSTR:REPORT OF CONSULTATION 1721 01/28/18 0837 interface
[2017-12-29] MEDS ORDERED: CARDIZEM CD120 M2 PO (07:03)
[2017-12-29 07:14] LABS: HEMATOCRIT 38.3 % (37.0-47.0); HEMOGLOBIN 11.1 g/dl (12.0-16.0); MEAN CELL VOLUME 84.5 fl (81.0-99.0); MEAN CORPUSCULAR HGB 24.5 pg (27.0-31.0); RED BLOOD COUNT 4.53 10*6/uL (4.10-5.10); RED CELL DISTRI WIDTH 15.9 % (0-14.5); WHITE BLOOD COUNT 9.5 10*3/uL (4.8-10.8)
[2017-12-29 07:20] LABS: PLATELET COUNT AUTOMATED 140 10*3/uL (130-400)
[2017-12-29 07:29] LABS: ALKALINE PHOSPHATASE 127 U/L (45-117); BUN 13 mg/dl (7-24); CHLORIDE 108 mmol/L (98-107); CREATININE 0.57 mg/dL (0.55-1.02); POTASSIUM 3.8 mmol/L (3.5-5.1); SGOT/AST 15 IU/L (3-35); SGPT/ALT 20 U/L (12-78); SODIUM 143 mmol/L (136-145); TROPONIN I < 0.015 ng/ml (<0.045)
[2017-12-29 07:32] LABS: BASOPHILS 1 % (0-1); TOTAL CELLS COUNTED 100 #CELLS
[2017-12-29 07:33] LABS: PLATELET SUFFICIENCY NORMAL (NORMAL)
[2017-12-29 08:00] LABS: BILIRUBIN NEGATIVE (NEGATIVE); BLOOD 1+ (NEGATIVE); CLARITY CLOUDY (CLEAR); COLOR YELLOW (YELLOW); GLUCOSE NEGATIVE (NEGATIVE); KETONE NEGATIVE (NEGATIVE); LEUKO ESTERASE 1+ (NEGATIVE); NITRITE POSITIVE (NEGATIVE)
[2017-12-29 08:08] LABS: BACTERIA 4+; WBC TNTC wbc/hpf (0-5)
[2017-12-29 08:09] LABS: RBC 16-20 rbc/hpf (0-2)
[2017-12-30] VITALS: BP 126/65
[2017-12-30 06:52] LABS: BASO % 0.5 % (0.0-1.0); EOS # 0.3 10*3/uL (0.0-0.4); HEMATOCRIT 38.5 % (37.0-47.0); HEMOGLOBIN 11.3 g/dl (12.0-16.0); LYMPH # 0.6 10*3/uL (1.3-4.4); LYMPH % 7.4 % (27.0-41.0); MEAN CELL VOLUME 85.4 fl (81.0-99.0); MEAN CORPUSCULAR HGB 25.1 pg (27.0-31.0); MEAN CORPUSCULAR HGB CONC 29.4 g/dl (33.0-37.0); MEAN PLATELET VOLUME 11.9 fl (9.6-12.3); MONO # 0.7 10*3/uL (0.1-1.0); MONO % 9.6 % (3.0-9.0); PLATELET COUNT AUTOMATED 105 10*3/uL (130-400); RED BLOOD COUNT 4.51 10*6/uL (4.10-5.10); RED CELL DISTRI WIDTH 15.9 % (0-14.5); WHITE BLOOD COUNT 7.7 10*3/uL (4.8-10.8)
[2017-12-30 08:00] VITALS: BP 124/66
[2017-12-30 11:44] VITALS: BP 112/65
[2017-12-30 16:00] VITALS: BP 123/55
[2017-12-30 20:00] VITALS: BP 121/80
[2017-12-31] VITALS: BP 129/72
[2017-12-31 06:20] LABS: BASO % 0.5 % (0.0-1.0); EOS # 0.1 10*3/uL (0.0-0.4); EOS % 1.8 % (1.0-4.0); HEMATOCRIT 40.4 % (37.0-47.0); HEMOGLOBIN 11.6 g/dl (12.0-16.0); LYMPH % 12.5 % (27.0-41.0); MEAN CELL VOLUME 86.7 fl (81.0-99.0); MEAN CORPUSCULAR HGB 24.9 pg (27.0-31.0); MEAN CORPUSCULAR HGB CONC 28.7 g/dl (33.0-37.0); MEAN PLATELET VOLUME 12.6 fl (9.6-12.3); MONO # 0.8 10*3/uL (0.1-1.0); MONO % 10.6 % (3.0-9.0); NEUT # 5.7 10*3/uL (2.3-7.9); NEUT % 74.3 % (47.0-73.0); RED BLOOD COUNT 4.66 10*6/uL (4.10-5.10); RED CELL DISTRI WIDTH 15.9 % (0-14.5); WHITE BLOOD COUNT 7.6 10*3/uL (4.8-10.8)
[2017-12-31 06:21] LABS: PLATELET COUNT AUTOMATED 106 10*3/uL (130-400)
[2017-12-31 06:52] LABS: BUN 17 mg/dl (7-24); CHLORIDE 99 mmol/L (98-107); CREATININE 0.63 mg/dL (0.55-1.02); POTASSIUM 3.9 mmol/L (3.5-5.1); SODIUM 139 mmol/L (136-145)
[2017-12-31 12:00] VITALS: BP 126/67
[2017-12-31 16:00] VITALS: BP 125/52
[2017-12-31 20:00] VITALS: BP 132/96
[2018-01-01] VITALS: BP 134/68
[2018-01-01 08:02] VITALS: BP 132/82
[2018-01-01 12:00] VITALS: BP 109/68
[2018-01-01 20:00] VITALS: BP 137/64
[2018-01-02] VITALS: BP 136/85
[2018-01-02 08:00] VITALS: BP 132/80
[2018-01-02 12:00] VITALS: BP 139/77
[2018-01-02 16:00] VITALS: BP 139/75
[2018-01-02 20:00] VITALS: BP 135/74
[2018-01-03] VITALS: BP 134/97
[2018-01-03 08:00] VITALS: BP 136/78
[2018-01-03 12:00] VITALS: BP 140/80
[2018-01-03 16:00] VITALS: BP 124/62
[2018-01-03 20:00] VITALS: BP 123/85
[2018-01-04] VITALS: BP 136/61
[2018-01-04 08:00] VITALS: BP 134/78
[2018-01-04] MEDS ORDERED: CEFUROXIME AXE250 MG PO (08:14)
[2018-01-04] MEDS ORDERED: DILTIAZEM 24HR120 MG PO (08:14)
[2018-01-04] MEDS ORDERED: PREDNISONE5 MG PO (08:14)
[2018-01-04] MEDS ORDERED: ALDACTONE25 MG PO (08:20)
[2018-01-04 12:00] VITALS: BP 126/86
[2018-01-04] MEDS ORDERED: LANOXIN62.5 MCG PO (12:10)
== END 2018-01-04 14:47 | disposition home or self-care (01) | DRG 291 ==
LOC: ED 06:31 → 5E 10:14 → EDHOLD 10:14 → 5E 10:35
PROVIDERS: Emergency Medicine; Internal Medicine
DX: I11.0 Hypertensive heart disease with heart failure (principal); J96.01 Acute respiratory failure with hypoxia; N39.0 Urinary tract infection, site not specified; J44.0 Chronic obstructive pulmonary disease with (acute) lower respiratory infection; I50.33 Acute on chronic diastolic (congestive) heart failure; I48.2 Chronic atrial fibrillation; B96.20 Unspecified Escherichia coli [E. coli] as the cause of diseases classified elsewhere; J20.9 Acute bronchitis, unspecified; M19.90 Unspecified osteoarthritis, unspecified site; Z96.643 Presence of artificial hip joint, bilateral; Z96.653 Presence of artificial knee joint, bilateral; J43.2 Centrilobular emphysema; K44.9 Diaphragmatic hernia without obstruction or gangrene; I27.20 Pulmonary hypertension, unspecified; Z87.440 Personal history of urinary (tract) infections; Z90.710 Acquired absence of both cervix and uterus; Z80.9 Family history of malignant neoplasm, unspecified; Z83.6 Family history of other diseases of the respiratory system

== ENCOUNTER → 2019-01-01 | Outpatient (CLI) | payer MEDICARE ==
[~2019-01-01] MED LIST changes: +ALDACTONE25 MG PO; +CEFUROXIME AXE250 MG PO; +DILTIAZEM 24HR120 MG PO; +Diltiazem HCl120 MG PO; +Flonase 0.05% 120 Me NAS; +GOOD NEIGHBOR L10 MG PO; +LANOXIN62.5 MCG PO; +LOSARTAN POTASS25 M1 PO; +Nystatin 100,000 UNI PO; +PREDNISONE5 MG PO
[2019-01-01 16:12] LABS: BILIRUBIN NEGATIVE (NEGATIVE); BLOOD 2+ (NEGATIVE); CLARITY CLEAR (CLEAR); COLOR YELLOW (YELLOW); GLUCOSE NEGATIVE (NEGATIVE); KETONE NEGATIVE (NEGATIVE); LEUKO ESTERASE NEGATIVE (NEGATIVE); NITRITE NEGATIVE (NEGATIVE)
[2019-01-01 16:34] LABS: BACTERIA 2+; WBC 0-2 wbc/hpf (0-5)
== END | disposition home or self-care (01) ==
LOC: LAB 15:31
PROVIDERS: Emergency Medicine
DX: N39.0 Urinary tract infection, site not specified (principal)

== ENCOUNTER → 2019-02-24 | Outpatient (CLI) | payer MEDICARE ==
[2019-02-24 13:16] LABS: BASO # 0.1 10*3/uL (0.0-0.1); BASO % 0.7 % (0.0-1.0); EOS # 0.2 10*3/uL (0.0-0.4); EOS % 2.4 % (1.0-4.0); HEMATOCRIT 36.8 % (37.0-47.0); HEMOGLOBIN 10.5 g/dl (12.0-16.0); LYMPH % 13.1 % (27.0-41.0); MEAN CELL VOLUME 83.6 fl (81.0-99.0); MEAN CORPUSCULAR HGB 23.9 pg (27.0-31.0); MEAN CORPUSCULAR HGB CONC 28.5 g/dl (33.0-37.0); MONO # 0.6 10*3/uL (0.1-1.0); NEUT # 5.6 10*3/uL (2.3-7.9); NEUT % 75.3 % (47.0-73.0); PLATELET COUNT AUTOMATED 77 10*3/uL (130-400); RED CELL DISTRI WIDTH 16.2 % (0-14.5); WHITE BLOOD COUNT 7.4 10*3/uL (4.8-10.8)
[2019-02-24 13:33] LABS: ALBUMIN 3.2 gm/dl (3.1-4.5); ALKALINE PHOSPHATASE 94 U/L (45-117); BUN 25 mg/dl (7-24); CHLORIDE 105 mmol/L (98-107); CHOLESTEROL 151 mg/dL (<200); CREATININE 0.93 mg/dL (0.55-1.02); FREE T4 0.87 ng/dl (0.76-1.46); HDL CHOLESTEROL 52 mg/dl (40-60); LDL CHOLESTEROL 82 mg/dL (9-159); POTASSIUM 4.1 mmol/L (3.5-5.1); SGOT/AST 14 IU/L (3-35); SGPT/ALT 13 U/L (12-78); SODIUM 139 mmol/L (136-145); TOTAL PROTEIN 7.2 gm/dL (6.4-8.2); TRIGLYCERIDES 84 mg/dl (<150); VLDL CHOLESTEROL 17 mg/dL (6-40)
[2019-02-24 13:51] LABS: TOTAL CELLS COUNTED 100 #CELLS
[2019-02-24 13:52] LABS: PLATELET SUFFICIENCY LOW (NORMAL)
== END | disposition home or self-care (01) ==
LOC: LAB 12:24
PROVIDERS: Internal Medicine
DX: D51.9 Vitamin B12 deficiency anemia, unspecified (principal); E55.9 Vitamin D deficiency, unspecified; E78.2 Mixed hyperlipidemia; I12.9 Hypertensive chronic kidney disease with stage 1 through stage 4 chronic kidney disease, or unspecified chronic kidney disease; N18.2 Chronic kidney disease, stage 2 (mild)

== ENCOUNTER → 2019-05-19 | Outpatient (CLI) | payer MEDICARE ==
[2019-05-19 15:09] LABS: HEMATOCRIT 38.7 % (37.0-47.0); HEMOGLOBIN 11.1 g/dl (12.0-16.0); MEAN CORPUSCULAR HGB 23.8 pg (27.0-31.0); MEAN CORPUSCULAR HGB CONC 28.7 g/dl (33.0-37.0); PLATELET COUNT AUTOMATED 66 10*3/uL (130-400); RED BLOOD COUNT 4.66 10*6/uL (4.10-5.10); WHITE BLOOD COUNT 6.8 10*3/uL (4.8-10.8)
[2019-05-19 15:22] LABS: ALBUMIN 3.4 gm/dl (3.1-4.5); ALKALINE PHOSPHATASE 109 U/L (45-117); BUN 27 mg/dl (7-24); CHLORIDE 102 mmol/L (98-107); CHOLESTEROL 151 mg/dL (<200); CREATININE 0.87 mg/dL (0.55-1.02); HDL CHOLESTEROL 67 mg/dl (40-60); LDL CHOLESTEROL 70 mg/dL (9-159); POTASSIUM 4.2 mmol/L (3.5-5.1); SGOT/AST 10 IU/L (3-35); SGPT/ALT 21 U/L (12-78); SODIUM 138 mmol/L (136-145); TOTAL PROTEIN 7.5 gm/dL (6.4-8.2); TRIGLYCERIDES 71 mg/dl (<150); VLDL CHOLESTEROL 14 mg/dL (6-40)
[2019-05-19 15:23] LABS: FREE T4 0.96 ng/dl (0.76-1.46)
[2019-05-19 15:30] LABS: VITAMIN D, 25-HYDROXY 33.6 ng/mL (30-100)
[2019-05-19 15:37] LABS: OVALOCYTES FEW; PLATELET SUFFICIENCY LOW (NORMAL); TOTAL CELLS COUNTED 100 #CELLS
== END | disposition home or self-care (01) ==
LOC: LAB 14:41
PROVIDERS: Internal Medicine
DX: I11.0 Hypertensive heart disease with heart failure (principal); I50.32 Chronic diastolic (congestive) heart failure; E78.2 Mixed hyperlipidemia; E55.9 Vitamin D deficiency, unspecified

== ENCOUNTER → 2019-08-19 | Outpatient (CLI) | payer MEDICARE ==
[2019-08-19 14:29] LABS: BILIRUBIN NEGATIVE (NEGATIVE); CLARITY SL CLOUDY (CLEAR); COLOR YELLOW (YELLOW); GLUCOSE NEGATIVE (NEGATIVE); KETONE NEGATIVE (NEGATIVE); SPECIFIC GRAVITY 1.025 (1.005-1.030)
[2019-08-19 14:30] LABS: BACTERIA 1+; BLOOD NEGATIVE (NEGATIVE); EPITHELIAL CELLS 41-50; LEUKO ESTERASE NEGATIVE (NEGATIVE); NITRITE NEGATIVE (NEGATIVE); UROBILINOGEN 0.2 E.U./dl (0.2-1.0); WBC 0-2 wbc/hpf (0-5)
== END | disposition home or self-care (01) ==
LOC: LAB 13:38
PROVIDERS: Internal Medicine
DX: N39.0 Urinary tract infection, site not specified (principal)

== ENCOUNTER 2020-03-20 15:42 | Inpatient (IN) | payer MEDICARE ==
[~2020-03-20] VITALS: Ht 160 cm; Wt 93.6 kg
[2020-03-20 15:50] VITALS: BP 144/59
[2020-03-20 16:34] LABS: INTERNATIONAL NORM RATIO 1.2 (2.0-3.5)
[2020-03-20 16:44] LABS: ALKALINE PHOSPHATASE 132 U/L (45-117); BUN 21 mg/dl (7-24); CHLORIDE 101 mmol/L (98-107); CREATININE 0.72 mg/dL (0.55-1.02); POTASSIUM 3.9 mmol/L (3.5-5.1); SGOT/AST 28 IU/L (3-35); SGPT/ALT 21 U/L (12-78); SODIUM 142 mmol/L (136-145)
[2020-03-20 16:49] LABS: TROPONIN I < 0.015 ng/ml (<0.045)
[2020-03-20 17:11] LABS: HEMATOCRIT 40.3 % (37.0-47.0); MEAN CELL VOLUME 89.6 fl (81.0-99.0); MEAN CORPUSCULAR HGB 24.2 pg (27.0-31.0); PLATELET COUNT AUTOMATED 44 10*3/uL (130-400); RED CELL DISTRI WIDTH 16.4 % (0-14.5); WHITE BLOOD COUNT 6.4 10*3/uL (4.8-10.8)
[2020-03-20 17:46] LABS: BASOPHILS 1 % (0-1); PLATELET SUFFICIENCY LOW (NORMAL); TOTAL CELLS COUNTED 100 #CELLS
[2020-03-20] MEDS ORDERED: BUMETANIDE2 MG PO (18:51)
[2020-03-20 20:18] VITALS: BP 136/55
[2020-03-20] MEDS ORDERED: BUSPAR5 MG PO (20:30)
--- NOTE | 2020-03-20 20:47 | NUR ---
PATIENT SPOKE WITH FAMILY AND IS REQUESTING TO BE DNR-CC. PER FAMILY AND PATIENT SHE DOES NOT HAVE ANY PAPERWORK SIGNED REGARDING THIS. RN WILL INFORM PHYSICIAN OF PATIENTS REQUEST.
--- NOTE | 2020-03-20 20:50 | NUR ---
MOVED PATIENT FROM ER COT TO HOSPITAL BED AT THIS TIME. PATIENT DENIES ANY FURTHER NEEDS. RESPIRATIONS EASY, NON-LABORED ON 4L O2 VIA NASAL CANNULA. CALL LIGHT WITHIN REACH. PATIENT SITTING UP IN BED WATCHING TV AT THIS TIME. RN WILL CONTINUE TO MONITOR. SIDERAILS X2.
--- NOTE | 2020-03-20 21:06 | NUR ---
CONSULT CALLED TO [facility] AT THIS TIME. PER CALL CENTER THEY WILL SEND CNSULT AND CARDIOLOGY WILL SEE PATIENT IN THE MORNING.
[2020-03-20 23:00] VITALS: BP 136/55
--- NOTE | 2020-03-20 23:49 | NUR ---
PATIENT SITTING UP IN BED WITH LIGHTS TURNED DOWN/ RESPIRATIONS EASY, NON-LABORED ON 4L O2 VIA NASAL CANNULA. PATIENT DENIES ANY NEEDS AT THIS TIME. CALL LIGHT WITHIN REACH. SIDERAILS X2. RN WILL CONTINUE TO MONITOR.
--- NOTE | 2020-03-21 03:00 | NUR ---
HELPED PATIENT REPOSITION FOR COMFORT AT THIS TIME AND TURNED PATIENTS TV ON FOR HER. PATIENT DENIES ANY FURTHER NEEDS. RESPIRATIONS EASY, NON-LABORED ON 4L O2 VIA NC. CALL LIGHT WITHIN REACH. SIDERAILS X2. RN WILL CONTINUE TO MONITOR.
--- NOTE | 2020-03-21 06:12 | NUR ---
CALLED ROOM SERVICE AT THIS TIME AND PLACED BREAKFAST ORDER FOR PATIENT. PATIENT RESTING IN BED. NO DISTRESS NOTED. RN WILL CONTINUE TO MONITOR.
--- NOTE | 2020-03-21 06:31 | NUR ---
PTS DAUGHTER CINDY CALLED . IT WAS EXLAINED TOT HE DAUGHTER PT WAS ADMITTED TO ROOM 522 AND WOULD BE GOING TOHER ROOM AFTER SWHIFT CHANGE. GABRIELLA TIPTON RN.
[2020-03-21 06:46] LABS: BUN 20 mg/dl (7-24); CHLORIDE 100 mmol/L (98-107); POTASSIUM 3.9 mmol/L (3.5-5.1); SODIUM 142 mmol/L (136-145)
[2020-03-21 06:52] VITALS: BP 140/60
[2020-03-21 08:45] VITALS: BP 124/73
--- NOTE | 2020-03-21 09:15 | NUR ---
A 89YO FEMALE, admitted to , under the services of Dr. TAINA VERA,ZAINAB Blanco with a diagnosis of CHF. Chief complaint is SHORTNESS OF BREATH AND SWELLING OF LEGS. Patient arrived via stretcher from ER. Monitor applied. Initial assessment completed. Vital signs taken and recorded. DR. TAINA VERA,ZAINAB Blanco notified of admission to the unit. Orders received. See assessment for past medical history, medications and allergies. Patient and/or family oriented to unit. [facility] visitation policy reviewed. Clothing/patient valuable form completed. ALEXANDRA DURAN
--- NOTE | 2020-03-21 09:20 | NUR ---
PHYSICAL THERAPY Physical Therapy evaluation completed on 5E with full evaluation to follow. Low complexity skilled PT evaluation per chart review and evaluation, [address]. Recommend physical therapy per plan of care and SNF upon discharge. Thank you for this referral. Rebeca Barboza,PT,DPT
--- NOTE | 2020-03-21 09:22 | NUR ---
Occupational Therapy evaluation completed on five with full evaluation to follow. Recommend occupational therapy per plan of care and SNF upon discharge. Thank you for this referral. LANA CREWS OTR/L
[2020-03-21 09:30] VITALS: BP 124/73
--- NOTE | 2020-03-21 09:36 | NUR ---
Flight Test Mechanic in to talk to patient in her Room Patient states that she lives alone in an Apartment which is Handicap Appropriate. There are No steps in the home. Physician: Dr. Mccurdy Pharmacy: [facility] health services: None at this time Patient's level of ADLs: INDEPENDENT, Family does assist when needed. Patient has working utilities: Pt. lives in an Apartment Building with all Utilities Working. DME: Wheeled Walker, Home Oxygen with [employer]anks Follow-up physician's appointment after d/c: Pt. Daughter Barbie Acevedo will make her follow up appointments. Does patient want to access PORTAL?: Declines Discharge plan Pt. came to [facility] From Home. Discussed SNF due to Increased Weakness and Shortness of Breath. Pt. is Agreeable to go to [facility] if SNF is ordered by her Physician. If there is no SNF need Pt. will return home and will require Home Health. KIRIT SANCHEZ LPN
[2020-03-21] MEDS ORDERED: COZAAR50 M1 PO (10:09)
[2020-03-21] MEDS ORDERED: ACIPHEX20 MG PO (10:10)
[2020-03-21] MEDS ORDERED: FLONASE ALLERG9.9 ML NAS (10:11)
[2020-03-21 12:00] VITALS: BP 140/58
--- NOTE | 2020-03-21 12:14 | NUR ---
Patient requests to eat lunch first. Will check back in with her soon to complete.
--- NOTE | 2020-03-21 12:58 | NUR ---
Spoke with Patient in the Room. Notified Pt. that Had Recommended SNF and Pt. again states first [facility]. Referral Faxed to [facility] Attn: Bree [phone]. Left Message with Pt. daughter Barbie Acevedo answering Machine to Discuss discharge Planning at the request of Patient.
[2020-03-21 16:00] VITALS: BP 143/70
--- NOTE | 2020-03-21 16:04 | NUR ---
[facility] Reviewing Referral, Awaiting Acceptance/Denial. Currently in Review with DON. Rahman. Daughter Barbie Acevedo is aware of Need for SNF and is ok with [facility] Referral. Will Follow.
--- NOTE | 2020-03-21 16:45 | NUR ---
PATIENT VISITING WITH DAUGHTER, C/O SHORTNESS OF BREATH/TACHYPNEA, POX 88% ON O2 3L NC, HR AFIB/IRREGULAR RATE 110'S -120'S. PAGING DR. ROBERTS.
--- NOTE | 2020-03-21 16:55 | NUR ---
OBTAINED ORDERS FROM DR. ROBERTS TO INCREASE O2 NC, GIVE 2MG IV BUMEX NOW, GIVE DIGOXIN 250MCG IV X 1 NOW, REPEAT DIGOXIN DOSE IN 6 HOURS, OBTAIN BNP, MONIITOR I & O FOR NEXT 6 HOURS.
--- NOTE | 2020-03-21 18:15 | NUR ---
IV BUMEX 2MG AND IV DIGOXIN 250MCG ADMINISTERED ORDERED. EMPTIED 850ML URINE FROM CHEN DRAINAGE BAG IN ORDER TO ACCURATELY MEASURE OUTPUT FOR THE NEXT 6 HOURS. HR CURRENTLY 90'S -120'S AFIB/IRREGULAR.
--- NOTE | 2020-03-21 18:49 | NUR ---
HR CURRENTLY 110'S AFIB/IRREGULAR AFTER ADMINISTRATION OF DIGOXIN.
[2020-03-21 20:00] VITALS: BP 154/74
--- NOTE | 2020-03-21 21:00 | NUR ---
RESTING IN BED WITH NO ACUTE DISTRESS NOTED. RESPIRATIONS EASY. LUNGS DIMINISHED WITH FINE PB RALES. PULSE OX 93% 3L. CHEN PATENT. BLE RED, WARM AND EDEMATOUS - NORM PER PT. CALL LIGHT WITHIN REACH. NO VOICED COMPLAINTS
--- NOTE | 2020-03-21 21:00 | NUR ---
24 HR chart check completed.
[2020-03-22] VITALS: BP 157/83
--- NOTE | 2020-03-22 | NUR ---
RESTING IN BED WITH EYES CLOSED AND NO DISTRESS NOTED. RESPIRATIONS EASY. VSS. CALL LIGHT WITHIN REACH
--- NOTE | 2020-03-22 05:00 | NUR ---
RESTED THROUGHOUT NIGHT WITH NO DISTRESS NOTED. RESPIRATIONS EASY. O2 IN USE. CALL LIGHT WITHIN REACH. NO VOICED COMPLAINTS THIS SHIFT
--- NOTE | 2020-03-22 07:58 | NUR ---
PHYSICAL THERAPY Screen and PT eval received pt has been evaluated and is on caseload thank you Elva Dc PT
--- NOTE | 2020-03-22 07:58 | NUR ---
OT NOTE Nursing screen received. Patient is currently on OT caseload. Will continue with POC as able. Thank you. April Acevedo, OTR/L
[2020-03-22 08:00] VITALS: BP 143/50
--- NOTE | 2020-03-22 08:30 | NUR ---
OT NOTE Attempted to see pt this A.M. for OT session and upon arrival pt was eating her breakfast. Will check back at a later time and continue with POC as able. ANTHONY [place]
--- NOTE | 2020-03-22 08:30 | NUR ---
PHYSICAL THERAPY Patient was eating breakfast this am when approached for initial therapy attempt. Will continue later this am as tolerated. Kunal Perez, MASTER MECHANIC
--- NOTE | 2020-03-22 09:41 | NUR ---
Pt. accepted to [facility] For SNF. Precert is required and Covid Swab results. Spoke with Bree at [facility] this am Provided with Updates. Covid Swab remains pending.
--- NOTE | 2020-03-22 10:55 | NUR ---
OT NOTE Attempted to see pt this A.M. for OT session and upon arrival pt was under echo. Will check back at a later time/date and continue with POC as able. MUNIRA Washington/Radha
--- NOTE | 2020-03-22 11:00 | NUR ---
PHYSICAL THERAPY Patient was receiving in room ECHO this am when approached for second therapy attempt and not available for treatment at this time. Will continue per POC as able. Kunal Perez, SUPERVISOR COKE HANDLING
[2020-03-22 12:00] VITALS: BP 113/60
--- NOTE | 2020-03-22 13:37 | NUR ---
Spoke with Pt. daughter Barbie Acevedo. They are currently having a family meeting about Pt. Going to SNF. Family is aprehensive due to Reported Cases of Covid at [facility]. Barbie Acevedo States that she will be in touch later today.
--- NOTE | 2020-03-22 14:40 | NUR ---
OT NOTE Pt was seen this P.M. 1:1 for 20 minute OT session. Upon arrival pt was supine in bed. Pt identified by name and and had complaints of generalized weakness and being very fearful of falling. Pt presented to therapy with continuous 3L-O2 via NC which she remained on throughout the entire session. Pt transferred supine to sit EOB with Анна X 2. Upon inital rise to the EOB pt had complaints of feeling dizzy. Pt was educated on visual fixation technique which pt after aprox 25 seconds had no other complaints of feeling dizzy. Sit to stand completed from bed level with Анна X 2 and use of w/w for UE support. Challenged pt's static standing tolerance needed for increased I in self care tasks and functional transfers. Pt was able to tolerate aprox 60 seconds before sitting due to fatigue. After a seated rest break pt then completed sit to stand from EOB with Анна X 2 and use of w/w followed by standing pivot from the EOB to the bedside commode with CGA and use of w/w. Pt transferred on to the bedside commode with CGA and off with modA X 2 due to low surface. Standing pivot completed back to the EOB with CGA where she transferred sit to supine with Анна X 2. There she was left with call light in hand, tray table in place, and bed alarm activated for safety. Continue with rec D/C plan to SNF. ANTHONY Washington
--- NOTE | 2020-03-22 14:49 | NUR ---
PHYSICAL THERAPY Patient presented to therapy in supine with head of bed elevated and bed alarm on. Patint is on 3.5 liters of spO2 via nasal canula. Patient gives inforemd consent for treatment. Patient was identified by name and on wristband. Patient reports a fear of falling and anxiety. Patient performed supine < > sitting on EOB with MIN A X 2. Patient sat on EOB with CGA. Patient STS < > EOB with MIN A X 2 with verbal cues for pushing off bed with hands and locking knees into extension upon standing. Patient performed standing tolerance for 1 minute at Walker and then had to sit EOB with CGA. Patient then STS again from EOB with MIN A X 1 and then SPT to bedside chair with CGA and verbal cues for backing up to chair and putting hands back on armrests of chair. Patient's O2 SAT taken and recorded as 93% - 95% on 3.5 liters. Patient STS from low bedside chair with MOD A X 2 and verbal cues for proper technique. Patient SPT back to sitting on EOB with CGA. Patient completed Sitting on EOB to Supine in bed with MAX A X 2. Patient was moved up to head of bed with sheet with MAX A X 2. Patient was left in supine in bed with head of bed elevated, call light within reach and bed alarm on. Patient was 1:1 with this ROTOR BLADE INSTALLER for 21 minutes total. ALVARADO EDWARDS ROTOR BLADE INSTALLER
--- NOTE | 2020-03-22 15:33 | NUR ---
Updated Therapy Notes faxed to [facility] to Start Precert.
--- NOTE | 2020-03-22 15:54 | NUR ---
PT RESTING IN BED, SLEEPING. NO S/S OF DISTRESS. RESPIRATIONS EASY AND UNLABORED ON NC. WILL CONTINUE TO MONITOR. CALL LIGHT IN REACH.
[2020-03-22 16:00] VITALS: BP 123/66
--- NOTE | 2020-03-22 16:22 | NUR ---
Nutritional Support Services Note: Appetite is good for meals, she is eating 100% of diet as ordered. Ht.5'3 Wt.211# Left lower leg cellulitis. Regular diet as ordered. No nutrition intervention needed at this time. Continue to encourage good intake of meals. Will follow if needed. Celia Peraza Rdn Ld
[2020-03-22 20:00] VITALS: BP 150/88
--- NOTE | 2020-03-22 20:35 | NUR ---
PT RESTING IN BED. RESP-EASY AND REGULAR. OXYGEN IN USE. CALL LIGHT IN REACH. SEE SHIFT ASSESSMENT.
[2020-03-23] VITALS: BP 126/52
--- NOTE | 2020-03-23 00:30 | NUR ---
ASSISTED UP TO BSC, BATHED BY AIDES. RESTING BACK IN BED. OXYGEN IN USE. NO C/O AT THIS TIME. CALL LIGHT IN REACH. SEE SHIFT ASSESSMENT.
--- NOTE | 2020-03-23 05:10 | NUR ---
RESTING IN BED. PER PT STATES HER VAGINA IS HURTING. PT HAD CHEN PULLED UNDER HER LEG. REPOSITIONED AND NEW CATH SECURE PLACED. RATES PAIN 4 ON PAIN SCALE 0-10. MEDICATED WITH TYLENOL PO PER PRN ORDER, SEE EMAR. CALL LIGHT IN REACH. BED ALARM ON.
--- NOTE | 2020-03-23 06:10 | NUR ---
SITTING UP IN BED. OXYGEN IN USE. LAB GIRL IN ROOM WITH PT. STATES PAIN MEDICATION WAS EFFECTIVE. CALL LIGHT IN REACH. BED ALARM ON.
[2020-03-23 07:03] LABS: BUN 19 mg/dl (7-24); CHLORIDE 93 mmol/L (98-107); CREATININE 0.66 mg/dL (0.55-1.02); POTASSIUM 4.1 mmol/L (3.5-5.1); SODIUM 139 mmol/L (136-145)
--- NOTE | 2020-03-23 07:25 | NUR ---
DR HAN NOTIFIED THAT PT HAS CRITICAL C02 OF 48. NEW ORDERS RECEIVED FOR DIAMOX 250 MG PO BID. APPROPRIATE ORDERS PLACED.
[2020-03-23 08:00] VITALS: BP 119/65
--- NOTE | 2020-03-23 08:02 | NUR ---
OT NOTE Pt was seen this A.M. 1:1 for 25 minute OT session. Upon arrival pt was supine in bed. Pt identified by name and and had no complaints at this time. Pt presented to therapy with continuous 3L-O2 via NC which she remained on throughout the entire session. Pt transferred supine to sit EOB with CGA. Pt completed multiple sit to stand transfers from bed level with Анна and use of w/w for UE support. Challenged pt's static standing tolerance needed for increased I in self care tasks and functional transfers. Pt was able to tolerate aprox 45-60 seconds at a time before sitting due to fatigue. Pt completed functional mobility to the bathroom door and back with CGA and use of w/w. Pt voiced that she was very fearful of falling. Throughout pt was educated on pursed lip breathing which pt presented with poor carry over. While sitting EOB pt completed BUE towel exercsises over all planes for 1 x 10 with min resistance to increase and restore maximum functional strength and use. Pt transferred back into bed sit to supine with Анна for assist with BLE's and was repositioned with maxA X 2. Pt was left supine in bed with call light in hand, tray table in place, and bed alarm activated for safety. Continue with rec D/C plan to SNF. MUNIRA Washington/Radha
--- NOTE | 2020-03-23 09:30 | NUR ---
PHYSICAL THERAPY Patient seen this am 1;1 for therapy visit and was resting supine in bed upon therapist arrival. Patient identified by name / and was pleasant, voicing no new c/o's other than feeling a bit tired since completing OT chemist assistant treatment earlier this morning. Patient agreed to and performed supine B LE therex, all planes, 2 x 10 each to increase LE strength. Patient needed several v/c's to complete all ex AROM and remained in bed with call light, tray table, telphone, bed alarm for safety. Will continue per POC as tolerated, total treatment time 15 minutes. Kunal Perez, TACKING STITCH REMOVER
--- NOTE | 2020-03-23 10:56 | NUR ---
Precert started for [facility]. Pending Possible discharge tommorow. Family has agreed to SNF placement for therapy. Advised Family that Patient would be in a Private Room. Had Conversation with Nurse Funk concerning the Above.
--- NOTE | 2020-03-23 11:14 | NUR ---
[facility] Swab [facility] Attn: Bree. Plan for discharge tommorow.
[2020-03-23 12:00] VITALS: BP 129/48
--- NOTE | 2020-03-23 12:38 | NUR ---
Notified Dr. Siu of Pt. Precert Started and [facility] Is able to Accept PtBernardo lopez.
--- NOTE | 2020-03-23 14:50 | NUR ---
Precdenita returns. Pt. can discharge tommorow to [place] [facility] After 5:00 p.m.
--- NOTE | 2020-03-23 15:35 | NUR ---
Spoke with Patient Daughter Barbie Acevedo and Notified her of Planned discharge Tommorow Evening. Transportation arranged with 6:00 p.m. brass pickler by [facility]. Spoke with Nurse Blessing De León on the 5th Floor and notified her of above. Ambulance Necessity sheet placed on discharge Envelope. Spoke with Pt. in her Room and Advised her Of discharge Plans and times.
--- NOTE | 2020-03-23 15:46 | NUR ---
PHYSICAL THERAPY CO-SIGN I approve of the Physical Therapy notes written above. Elva Dc PT
--- NOTE | 2020-03-23 15:53 | NUR ---
OCCUPATIONAL THERAPY CO-SIGN I approve of the Occupational Therapy notes written above. LANA CREWS, OTR/L
[2020-03-23 16:00] VITALS: BP 130/52
--- NOTE | 2020-03-23 19:47 | NUR ---
PT HAS EXCORIATION TO BILATERAL BREASTS AND BILATERAL ABDOMINAL FOLD. DR HAN STATES TO APPLY NYSTATIN POWDER TO THESE AREAS. ORDERS PLACED.
[2020-03-23 20:00] VITALS: BP 93/51
--- NOTE | 2020-03-23 21:00 | NUR ---
PT RESTING IN BED. RESP-EASY AND REGULAR. OXYGEN IN USE. NO C/O AT THIS TIME. CALL LIGHT IN REACH. SEE SHIFT ASSESSMENT.
--- NOTE | 2020-03-23 23:19 | NUR ---
PATIENT MEDICATED WITH TYLENOL 1000MG FOR COMPLAINTS OF LEFT KNEE PAIN. WILL MONITOR FOR EFFECTIVENSS.
[2020-03-24] VITALS: BP 107/45
--- NOTE | 2020-03-24 | NUR ---
PT RESTING IN BED WITH EYES CLOSED AWAKENS EASILY. RESP-EASY AND REGULAR. STATES MEDICATION HELPED. CALL LIGHT IN REACH. SEE SHIFT ASSESSMENT.
--- NOTE | 2020-03-24 03:27 | NUR ---
CALLED DR. HAN REGARDING PT HAVING PAUSES NOTED IN MONITOR STRIP. MADE AWARE NEW MED STARTED TODAY. HOLD ALL MEDICATION UNTIL SHE SEES PT IN AM.
[2020-03-24 06:57] LABS: BUN 24 mg/dl (7-24); CHLORIDE 94 mmol/L (98-107); CREATININE 0.84 mg/dL (0.55-1.02); SODIUM 138 mmol/L (136-145)
--- NOTE | 2020-03-24 07:30 | NUR ---
IN TO SEE PATIENT.
[2020-03-24] MEDS ORDERED: REVATIO20 MG PO (07:46)
[2020-03-24] MEDS ORDERED: ACETAZOLAMIDE250 MG PO (07:46)
[2020-03-24] MEDS ORDERED: DIGOXIN125 MCG PO (07:46)
[2020-03-24 08:00] VITALS: BP 110/70
--- NOTE | 2020-03-24 09:00 | NUR ---
PATIENT RESTING QUIETLY IN BED. NO DISTRESS NOTED. POX 94% VIA 3LNC. DENIES ANY SOB AT REST. DENIES ANY PAIN/DISCOMFORT AT THIS TIME. WILL CONTINUE TO MONITOR. CALL LIGHT WITHIN REACH. SEE SHIFT ASSESSMENT. VSS.
[2020-03-24 12:00] VITALS: BP 105/55
--- NOTE | 2020-03-24 12:00 | NUR ---
PATIENT CONTINUES TO REST. NO VOICED COMPLAINTS. WILL CONTINUE TO MONITOR. CALL LIGHT WITHIN REACH.
[2020-03-24 16:00] VITALS: BP 111/54
--- NOTE | 2020-03-24 17:52 | NUR ---
AMBULANCE HERE TO TRANSPORT PATIENT TO [facility]. BELONGINGS WITH PATIENT.
--- NOTE | 2020-03-24 17:52 | NUR ---
Discharge instructions reviewed with patient/family. Patient receptive and verbalizes understanding. Follow-up care arranged. Written instructions given to patient/family. MAXX BEARD.
== END 2020-03-24 17:52 | disposition other institution (70) | DRG 291 ==
LOC: ED 15:42 → EDHOLD 17:15 → 5E 17:15
PROVIDERS: Family Medicine; ADMIT Internal Medicine; ATTEND Internal Medicine
DX: I11.0 Hypertensive heart disease with heart failure (principal); J80 Acute respiratory distress syndrome; I48.21 Permanent atrial fibrillation; L03.119 Cellulitis of unspecified part of limb; I50.33 Acute on chronic diastolic (congestive) heart failure; R62.7 Adult failure to thrive; E66.01 Morbid (severe) obesity due to excess calories; M19.90 Unspecified osteoarthritis, unspecified site; F41.1 Generalized anxiety disorder; D64.9 Anemia, unspecified; I27.20 Pulmonary hypertension, unspecified; Z96.643 Presence of artificial hip joint, bilateral; M16.0 Bilateral primary osteoarthritis of hip; I87.2 Venous insufficiency (chronic) (peripheral); Z79.01 Long term (current) use of anticoagulants; Z79.899 Other long term (current) drug therapy; Z99.81 Dependence on supplemental oxygen; Z90.49 Acquired absence of other specified parts of digestive tract; Z90.710 Acquired absence of both cervix and uterus; Z80.9 Family history of malignant neoplasm, unspecified; Z83.6 Family history of other diseases of the respiratory system; Z68.36 Body mass index [BMI] 36.0-36.9, adult; Z20.828 Contact with and (suspected) exposure to other viral communicable diseases

== ENCOUNTER 2020-05-17 19:07 | Inpatient (IN) | payer MEDICARE ==
[~2020-05-17] VITALS: Ht 160 cm; Wt 94.5 kg
[2020-05-17 04:00] VITALS: BP 101/54
[~2020-05-17 19:07] MED LIST changes: +ACETAZOLAMIDE250 MG PO; +ACIPHEX20 MG PO; +BUMETANIDE2 MG PO; +BUSPAR5 MG PO; +COZAAR50 M1 PO; +DIGOXIN125 MCG PO; +FLONASE ALLERG9.9 ML NAS; +REVATIO20 MG PO
[2020-05-17 19:26] VITALS: BP 132/67
[2020-05-17 20:02] LABS: INTERNATIONAL NORM RATIO 1.3 (2.0-3.5)
[2020-05-17 20:06] VITALS: BP 109/54
[2020-05-17 20:26] LABS: ALBUMIN 3.1 gm/dl (3.1-4.5); ALKALINE PHOSPHATASE 128 U/L (45-117); BUN 37 mg/dl (7-24); CHLORIDE 101 mmol/L (98-107); CREATININE 1.19 mg/dL (0.55-1.02); POTASSIUM 4.1 mmol/L (3.5-5.1); SGOT/AST 12 IU/L (3-35); SGPT/ALT 17 U/L (12-78); SODIUM 137 mmol/L (136-145)
[2020-05-17 20:29] LABS: TROPONIN I < 0.015 ng/ml (<0.045)
[2020-05-17 20:36] LABS: HEMATOCRIT 40.3 % (37.0-47.0); MEAN CELL VOLUME 87.8 fl (81.0-99.0); MEAN CORPUSCULAR HGB 25.1 pg (27.0-31.0); MEAN CORPUSCULAR HGB CONC 28.5 g/dl (33.0-37.0); RED BLOOD COUNT 4.59 10*6/uL (4.10-5.10); WHITE BLOOD COUNT 10.6 10*3/uL (4.8-10.8)
[2020-05-17 20:47] LABS: PLATELET COUNT AUTOMATED 16 10*3/uL (130-400)
[2020-05-17 21:03] LABS: PLATELET SUFFICIENCY LOW (NORMAL); TOTAL CELLS COUNTED 100 #CELLS
[2020-05-17 21:15] LABS: BILIRUBIN Negative (Negative); BLOOD 2+ (Negative); CLARITY Clear (Clear); COLOR Yellow (Yellow); GLUCOSE Negative (Negative); KETONE Negative (Negative); LEUKO ESTERASE Trace (Negative); NITRITE Negative (Negative); SPECIFIC GRAVITY 1.015 (1.001-1.030)
[2020-05-17 21:29] LABS: BACTERIA 1+
[2020-05-17 22:11] VITALS: BP 101/50
[2020-05-18] VITALS (14 sets, daily range): BP systolic 101–132; BP diastolic 46–874
[2020-05-18 07:49] LABS: FIBRIN DEGRADATION PRODUCTS >OR=5 BUT <20 ug/ml (< 5)
[2020-05-18] MEDS ORDERED: ARTIFICIAL TEAR15 M9 OP (08:26)
[2020-05-18] MEDS ORDERED: ARTIFICIAL TEAR1514 OP (08:27)
[2020-05-18 16:44] LABS: HEMATOCRIT 40.7 % (37.0-47.0); MEAN CELL VOLUME 87.3 fl (81.0-99.0); MEAN CORPUSCULAR HGB 25.5 pg (27.0-31.0); MEAN CORPUSCULAR HGB CONC 29.2 g/dl (33.0-37.0); RED BLOOD COUNT 4.66 10*6/uL (4.10-5.10); RED CELL DISTRI WIDTH 16.7 % (0-14.5); WHITE BLOOD COUNT 6.1 10*3/uL (4.8-10.8)
[2020-05-18 17:00] LABS: PLATELET COUNT AUTOMATED 27 10*3/uL (130-400)
[2020-05-18 17:03] LABS: BURR CELLS FEW; PLATELET SUFFICIENCY LOW (NORMAL); TOTAL CELLS COUNTED 100 #CELLS
[2020-05-19] VITALS: BP 133/67
[2020-05-19 06:42] LABS: HEMATOCRIT 37.6 % (37.0-47.0); MEAN CELL VOLUME 89.1 fl (81.0-99.0); MEAN CORPUSCULAR HGB 25.4 pg (27.0-31.0); MEAN CORPUSCULAR HGB CONC 28.5 g/dl (33.0-37.0); RED BLOOD COUNT 4.22 10*6/uL (4.10-5.10); RED CELL DISTRI WIDTH 16.5 % (0-14.5); WHITE BLOOD COUNT 5.9 10*3/uL (4.8-10.8)
[2020-05-19 06:43] LABS: PLATELET COUNT AUTOMATED 41 10*3/uL (130-400)
[2020-05-19 07:11] LABS: PLATELET SUFFICIENCY LOW (NORMAL); TOTAL CELLS COUNTED 100 #CELLS
[2020-05-19 08:00] VITALS: BP 129/65
[2020-05-19 12:00] VITALS: BP 137/71
[2020-05-19 16:00] VITALS: BP 122/76
[2020-05-19 20:00] VITALS: BP 134/96
[2020-05-20] VITALS: BP 140/80
[2020-05-20 08:00] VITALS: BP 146/80
[2020-05-20 08:17] LABS: HEMATOCRIT 40.2 % (37.0-47.0); MEAN CELL VOLUME 89.7 fl (81.0-99.0); MEAN CORPUSCULAR HGB 25.2 pg (27.0-31.0); MEAN CORPUSCULAR HGB CONC 28.1 g/dl (33.0-37.0); RED BLOOD COUNT 4.48 10*6/uL (4.10-5.10); RED CELL DISTRI WIDTH 16.1 % (0-14.5)
[2020-05-20 08:18] LABS: PLATELET COUNT AUTOMATED 68 10*3/uL (130-400)
[2020-05-20 09:33] LABS: OVALOCYTES FEW; PLATELET SUFFICIENCY LOW (NORMAL); ROULEAUX MODERATE; TOTAL CELLS COUNTED 100 #CELLS
[2020-05-20 12:00] VITALS: BP 137/70
[2020-05-20 16:00] VITALS: BP 127/66
[2020-05-20 20:00] VITALS: BP 124/84
[2020-05-21] VITALS: BP 155/80
[2020-05-21 06:46] LABS: MEAN CELL VOLUME 90.5 fl (81.0-99.0); MEAN CORPUSCULAR HGB 25.4 pg (27.0-31.0); MEAN CORPUSCULAR HGB CONC 28.1 g/dl (33.0-37.0); PLATELET COUNT AUTOMATED 64 10*3/uL (130-400); RED BLOOD COUNT 4.64 10*6/uL (4.10-5.10); RED CELL DISTRI WIDTH 15.9 % (0-14.5); WHITE BLOOD COUNT 6.9 10*3/uL (4.8-10.8)
[2020-05-21 07:11] LABS: BUN 43 mg/dl (7-24); CHLORIDE 101 mmol/L (98-107); CREATININE 0.85 mg/dL (0.55-1.02); POTASSIUM 4.5 mmol/L (3.5-5.1); SODIUM 137 mmol/L (136-145)
[2020-05-21 07:48] LABS: PLATELET SUFFICIENCY LOW (NORMAL); TOTAL CELLS COUNTED 100 #CELLS
[2020-05-21 07:49] LABS: OVALOCYTES FEW; POLYCHROMASIA SLIGHT; ROULEAUX SLIGHT
[2020-05-21 08:00] VITALS: BP 158/78
[2020-05-21 12:00] VITALS: BP 118/76
[2020-05-21 16:00] VITALS: BP 150/95
[2020-05-21 20:00] VITALS: BP 159/89; BP 160/95
[2020-05-22] VITALS: BP 143/90
[2020-05-22 06:51] LABS: HEMATOCRIT 43.5 % (37.0-47.0); MEAN CELL VOLUME 90.2 fl (81.0-99.0); MEAN CORPUSCULAR HGB 25.5 pg (27.0-31.0); MEAN CORPUSCULAR HGB CONC 28.3 g/dl (33.0-37.0); PLATELET COUNT AUTOMATED 71 10*3/uL (130-400); RED BLOOD COUNT 4.82 10*6/uL (4.10-5.10); RED CELL DISTRI WIDTH 15.9 % (0-14.5); WHITE BLOOD COUNT 6.7 10*3/uL (4.8-10.8)
[2020-05-22 07:28] LABS: BUN 43 mg/dl (7-24); CHLORIDE 103 mmol/L (98-107); CREATININE 0.82 mg/dL (0.55-1.02); POTASSIUM 4.4 mmol/L (3.5-5.1); SODIUM 139 mmol/L (136-145)
[2020-05-22 07:36] LABS: OVALOCYTES FEW; PLATELET SUFFICIENCY LOW (NORMAL); ROULEAUX SLIGHT; TOTAL CELLS COUNTED 100 #CELLS
[2020-05-22 08:00] VITALS: BP 145/86
[2020-05-22 12:00] VITALS: BP 136/80
[2020-05-22] MEDS ORDERED: CEFDINIR300 MG PO (21:20)
[2020-05-22] MEDS ORDERED: DIGOX125 MCG PO (21:22)
[2020-05-23 17:06] LABS: HLA CLASS 1 ANTIBODY Positive (Negative); IIb/IIIa ANTIBODY Positive (Negative); Ib/IX ANTIBODY Negative (Negative)
== END 2020-05-22 13:05 | disposition home health service (06) | DRG 602 ==
LOC: ED 19:07 → EDHOLD 05-18 02:03 → 5E 05-18 02:03
PROVIDERS: Emergency Medicine; ADMIT Internal Medicine; ATTEND Internal Medicine
PROC: 30233R1 Transfusion of Nonautologous Platelets into Peripheral Vein, Percutaneous Approach (ICD-10-PCS; principal; 2020-05-18)
DX: L03.115 Cellulitis of right lower limb (principal); J96.01 Acute respiratory failure with hypoxia; J96.02 Acute respiratory failure with hypercapnia; N17.0 Acute kidney failure with tubular necrosis; L03.114 Cellulitis of left upper limb; N39.0 Urinary tract infection, site not specified; I48.21 Permanent atrial fibrillation; I48.20 Chronic atrial fibrillation, unspecified; I50.32 Chronic diastolic (congestive) heart failure; D69.59 Other secondary thrombocytopenia; D69.1 Qualitative platelet defects; D69.6 Thrombocytopenia, unspecified; B96.4 Proteus (mirabilis) (morganii) as the cause of diseases classified elsewhere; B96.20 Unspecified Escherichia coli [E. coli] as the cause of diseases classified elsewhere; I27.20 Pulmonary hypertension, unspecified; D64.9 Anemia, unspecified; Z79.899 Other long term (current) drug therapy; F41.1 Generalized anxiety disorder; Z82.5 Family history of asthma and other chronic lower respiratory diseases; N18.30 Chronic kidney disease, stage 3 unspecified

== ENCOUNTER 2020-05-22 16:42 | Observation (INO) | payer MEDICARE ==
[2020-05-22] VITALS (8 sets, daily range): BP systolic 92–133; BP diastolic 58–70
[~2020-05-22] VITALS: Ht 160 cm; Wt 84.0 kg
[~2020-05-22 16:42] MED LIST changes: +ARTIFICIAL TEAR15 M9 OP; +ARTIFICIAL TEAR1514 OP
[2020-05-22 17:15] LABS: HEMATOCRIT 46.3 % (37.0-47.0); MEAN CELL VOLUME 90.1 fl (81.0-99.0); MEAN CORPUSCULAR HGB 25.1 pg (27.0-31.0); MEAN CORPUSCULAR HGB CONC 27.9 g/dl (33.0-37.0); RED BLOOD COUNT 5.14 10*6/uL (4.10-5.10); WHITE BLOOD COUNT 9.9 10*3/uL (4.8-10.8)
[2020-05-22 17:16] LABS: PLATELET COUNT AUTOMATED 90 10*3/uL (130-400)
[2020-05-22 17:19] LABS: ACT PARTIAL THROMBO TIME 24.2 SECONDS (20.0-32.1); INTERNATIONAL NORM RATIO 1.2 (2.0-3.5)
[2020-05-22 17:24] LABS: ALBUMIN 2.8 gm/dl (3.1-4.5); CREATININE 1.32 mg/dL (0.55-1.02); POTASSIUM 5.2 mmol/L (3.5-5.1); TOTAL PROTEIN 8.9 gm/dL (6.4-8.2); TROPONIN I 0.028 ng/ml (<0.045)
[2020-05-22 17:30] LABS: BURR CELLS FEW; PLATELET SUFFICIENCY LOW (NORMAL); ROULEAUX SLIGHT; TOTAL CELLS COUNTED 100 #CELLS
[2020-05-22] MEDS ORDERED: CEFDINIR300 MG PO (21:20)
[2020-05-22] MEDS ORDERED: DIGOX125 MCG PO (21:22)
[2020-05-23 08:00] VITALS: BP 112/73
[2020-05-23 12:00] VITALS: BP 115/80
[2020-05-23 16:00] VITALS: BP 113/69
[2020-05-23 20:26] VITALS: BP 106/64
[2020-05-23 23:43] VITALS: BP 127/77
[2020-05-24 06:45] LABS: HEMATOCRIT 43.1 % (37.0-47.0); MEAN CELL VOLUME 91.5 fl (81.0-99.0); MEAN CORPUSCULAR HGB 25.3 pg (27.0-31.0); MEAN CORPUSCULAR HGB CONC 27.6 g/dl (33.0-37.0); PLATELET COUNT AUTOMATED 73 10*3/uL (130-400); RED BLOOD COUNT 4.71 10*6/uL (4.10-5.10); RED CELL DISTRI WIDTH 16.1 % (0-14.5); WHITE BLOOD COUNT 6.3 10*3/uL (4.8-10.8)
[2020-05-24 07:06] LABS: CHLORIDE 99 mmol/L (98-107); CREATININE 0.78 mg/dL (0.55-1.02); SODIUM 139 mmol/L (136-145)
[2020-05-24 07:11] LABS: BUN 34 mg/dl (7-24)
[2020-05-24 07:12] LABS: POTASSIUM 4.1 mmol/L (3.5-5.1)
[2020-05-24 07:24] LABS: TOTAL CELLS COUNTED 100 #CELLS
[2020-05-24 07:25] LABS: PLATELET SUFFICIENCY LOW (NORMAL); ROULEAUX MODERATE
[2020-05-24 08:00] VITALS: BP 131/74
[2020-05-24 12:00] VITALS: BP 118/58
[2020-05-24 16:00] VITALS: BP 114/45
[2020-05-24 20:00] VITALS: BP 106/65
[2020-05-25] VITALS: BP 107/68
[2020-05-25 08:00] VITALS: BP 112/63; BP 141/50
[2020-05-25 08:18] LABS: BASO % 0.2 % (0.0-1.0); EOS # 0.2 10*3/uL (0.0-0.4); EOS % 2.3 % (1.0-4.0); HEMATOCRIT 41.1 % (37.0-47.0); LYMPH # 1.1 10*3/uL (1.3-4.4); LYMPH % 16.6 % (27.0-41.0); MEAN CELL VOLUME 92.2 fl (81.0-99.0); MEAN CORPUSCULAR HGB 25.6 pg (27.0-31.0); MEAN CORPUSCULAR HGB CONC 27.7 g/dl (33.0-37.0); MONO # 0.6 10*3/uL (0.1-1.0); MONO % 8.7 % (3.0-9.0); NEUT # 4.7 10*3/uL (2.3-7.9); NEUT % 71.4 % (47.0-73.0); PLATELET COUNT AUTOMATED 87 10*3/uL (130-400); RED BLOOD COUNT 4.46 10*6/uL (4.10-5.10); RED CELL DISTRI WIDTH 16.2 % (0-14.5); WHITE BLOOD COUNT 6.6 10*3/uL (4.8-10.8)
[2020-05-25 08:44] LABS: BUN 31 mg/dl (7-24); CHLORIDE 99 mmol/L (98-107); CREATININE 0.81 mg/dL (0.55-1.02); POTASSIUM 4.2 mmol/L (3.5-5.1); SODIUM 136 mmol/L (136-145)
[2020-05-25 12:00] VITALS: BP 105/69
== END 2020-05-25 19:11 ==
LOC: ED 16:42 → EDHOLD 17:48 → ICCU 17:48 → 5E 17:48 → ICCU 18:52 → 5E 05-23 14:22
PROVIDERS: Emergency Medicine; ADMIT Internal Medicine; ATTEND Internal Medicine
DX: I48.20 Chronic atrial fibrillation, unspecified (principal); N17.9 Acute kidney failure, unspecified; E87.3 Alkalosis; Z20.822 Contact with and (suspected) exposure to COVID-19; I95.9 Hypotension, unspecified; R62.7 Adult failure to thrive; I13.0 Hypertensive heart and chronic kidney disease with heart failure and stage 1 through stage 4 chronic kidney disease, or unspecified chronic kidney disease; N18.9 Chronic kidney disease, unspecified; I50.9 Heart failure, unspecified; R53.1 Weakness; D69.3 Immune thrombocytopenic purpura; L57.8 Other skin changes due to chronic exposure to nonionizing radiation; K21.00 Gastro-esophageal reflux disease with esophagitis, without bleeding; Z98.890 Other specified postprocedural states

== ENCOUNTER → 2020-11-16 | Outpatient (CLI) | payer MEDICARE ==
[~2020-11-16] MED LIST changes: +CEFDINIR300 MG PO; +DIGOX125 MCG PO
[2020-11-16 10:38] LABS: BASO # 0.1 10*3/uL (0.0-0.1); BASO % 0.4 % (0.0-1.0); EOS # 0.2 10*3/uL (0.0-0.4); EOS % 1.6 % (1.0-4.0); HEMATOCRIT 39.9 % (37.0-47.0); LYMPH % 8.3 % (27.0-41.0); MEAN CELL VOLUME 95.7 fl (81.0-99.0); MEAN CORPUSCULAR HGB 27.6 pg (27.0-31.0); MEAN CORPUSCULAR HGB CONC 28.8 g/dl (33.0-37.0); MONO # 0.6 10*3/uL (0.1-1.0); MONO % 5.6 % (3.0-9.0); NEUT # 9.5 10*3/uL (2.3-7.9); PLATELET COUNT AUTOMATED 81 10*3/uL (130-400); RED BLOOD COUNT 4.17 10*6/uL (4.10-5.10); RED CELL DISTRI WIDTH 15.6 % (0-14.5); WHITE BLOOD COUNT 11.4 10*3/uL (4.8-10.8)
[2020-11-16 10:54] LABS: ALKALINE PHOSPHATASE 123 U/L (45-117); BUN 24 mg/dl (7-24); CHLORIDE 101 mmol/L (98-107); CHOLESTEROL 149 mg/dL (<200); CREATININE 0.86 mg/dL (0.55-1.02); FREE T4 1.02 ng/dl (0.76-1.46); LDL CHOLESTEROL 80 mg/dL (9-159); POTASSIUM 4.4 mmol/L (3.5-5.1); SGOT/AST 13 IU/L (3-35); SGPT/ALT 14 U/L (12-78); SODIUM 139 mmol/L (136-145); TOTAL PROTEIN 7.5 gm/dL (6.4-8.2); TRIGLYCERIDES 106 mg/dl (<150)
[2020-11-16 11:10] LABS: VITAMIN D, 25-HYDROXY 66.9 ng/mL (30-100)
== END | disposition home or self-care (01) ==
LOC: LAB 10:05
PROVIDERS: ATTEND Internal Medicine
DX: I10 Essential (primary) hypertension (principal); E55.9 Vitamin D deficiency, unspecified; Z13.21 Encounter for screening for nutritional disorder; Z13.1 Encounter for screening for diabetes mellitus; Z13.220 Encounter for screening for lipoid disorders; Z13.6 Encounter for screening for cardiovascular disorders; Z13.89 Encounter for screening for other disorder

== ENCOUNTER → 2021-03-14 | Outpatient (CLI) | payer MEDICARE ==
[2021-03-14 12:02] LABS: HEMATOCRIT 44.8 % (37.0-47.0); MEAN CELL VOLUME 95.7 fl (81.0-99.0); MEAN CORPUSCULAR HGB 28.6 pg (27.0-31.0); MEAN CORPUSCULAR HGB CONC 29.9 g/dl (33.0-37.0); PLATELET COUNT AUTOMATED 60 10*3/uL (130-400); RED BLOOD COUNT 4.68 10*6/uL (4.10-5.10); RED CELL DISTRI WIDTH 14.9 % (0-14.5); WHITE BLOOD COUNT 12.8 10*3/uL (4.8-10.8)
[2021-03-14 13:12] LABS: PLATELET SUFFICIENCY LOW (NORMAL); TOTAL CELLS COUNTED 100 #CELLS
== END | disposition home or self-care (01) ==
LOC: LAB 11:17
PROVIDERS: ATTEND Internal Medicine Hematology & Oncology
DX: D69.3 Immune thrombocytopenic purpura (principal); D69.6 Thrombocytopenia, unspecified

== ENCOUNTER → 2021-06-05 | Outpatient (CLI) | payer MEDICARE ==
[2021-06-05 12:58] LABS: HEMATOCRIT 46.5 % (37.0-47.0); MEAN CELL VOLUME 97.3 fl (81.0-99.0); MEAN CORPUSCULAR HGB 30.8 pg (27.0-31.0); MEAN CORPUSCULAR HGB CONC 31.6 g/dl (33.0-37.0); MEAN PLATELET VOLUME 13.7 fl (9.6-12.3); PLATELET COUNT AUTOMATED 90 10*3/uL (130-400); RED BLOOD COUNT 4.78 10*6/uL (4.10-5.10); RED CELL DISTRI WIDTH 14.6 % (0-14.5)
[2021-06-05 13:00] LABS: MANUAL DIFF REFLEX YES
[2021-06-05 13:50] LABS: PLATELET SUFFICIENCY LOW (NORMAL); TOTAL CELLS COUNTED 100 #CELLS
== END ==
LOC: LAB 12:24
PROVIDERS: Internal Medicine Hematology & Oncology; ATTEND Physician Assistant
DX: D69.6 Thrombocytopenia, unspecified (principal); D69.3 Immune thrombocytopenic purpura; I50.9 Heart failure, unspecified; I48.91 Unspecified atrial fibrillation; R60.0 Localized edema; R54 Age-related physical debility

== ENCOUNTER → 2021-06-12 | Outpatient (CLI) | payer MEDICARE ==
[2021-06-12 10:47] LABS: HEMATOCRIT 44.4 % (37.0-47.0); MEAN CELL VOLUME 96.9 fl (81.0-99.0); MEAN CORPUSCULAR HGB 30.6 pg (27.0-31.0); MEAN CORPUSCULAR HGB CONC 31.5 g/dl (33.0-37.0); PLATELET COUNT AUTOMATED 51 10*3/uL (130-400); RED BLOOD COUNT 4.58 10*6/uL (4.10-5.10); RED CELL DISTRI WIDTH 14.5 % (0-14.5); WHITE BLOOD COUNT 14.7 10*3/uL (4.8-10.8)
[2021-06-12 11:17] LABS: MANUAL DIFF REFLEX YES
[2021-06-12 11:19] LABS: TOTAL CELLS COUNTED 100 #CELLS
[2021-06-12 11:20] LABS: OVALOCYTES FEW; PLATELET SUFFICIENCY LOW (NORMAL); VACUOLATION OF NEUTROPHILS SLIGHT
== END | disposition home or self-care (01) ==
LOC: LAB 09:33
PROVIDERS: ATTEND Physician Assistant
DX: D69.6 Thrombocytopenia, unspecified (principal); D69.3 Immune thrombocytopenic purpura; I50.9 Heart failure, unspecified; I48.91 Unspecified atrial fibrillation; R60.0 Localized edema; R54 Age-related physical debility

== ENCOUNTER → 2021-08-19 | Outpatient (CLI) | payer MEDICARE ==
[2021-08-19 13:36] LABS: HEMATOCRIT 44.1 % (37.0-47.0); MEAN CELL VOLUME 98.9 fl (81.0-99.0); MEAN CORPUSCULAR HGB 32.1 pg (27.0-31.0); MEAN CORPUSCULAR HGB CONC 32.4 g/dl (33.0-37.0); PLATELET COUNT AUTOMATED 81 10*3/uL (130-400); RED BLOOD COUNT 4.46 10*6/uL (4.10-5.10); RED CELL DISTRI WIDTH 13.3 % (0-14.5)
[2021-08-19 13:37] LABS: MANUAL DIFF REFLEX YES
[2021-08-19 13:42] LABS: ALKALINE PHOSPHATASE 106 U/L (45-117); BUN 34 mg/dl (7-24); CHLORIDE 103 mmol/L (98-107); CREATININE 0.96 mg/dL (0.55-1.02); LDH 195 U/L (84-246); POTASSIUM 4.5 mmol/L (3.5-5.1); SGOT/AST 12 IU/L (3-35); SGPT/ALT 12 U/L (12-78); SODIUM 138 mmol/L (136-145); TOTAL PROTEIN 7.1 gm/dL (6.4-8.2)
[2021-08-19 13:45] LABS: ATYPICAL LYMPHS 1 % (0-0); BASOPHILS 1 % (0-1); TOTAL CELLS COUNTED 100 #CELLS
[2021-08-19 13:46] LABS: BURR CELLS FEW; OVALOCYTES FEW; PLATELET SUFFICIENCY LOW (NORMAL); POLYCHROMASIA SLIGHT
== END | disposition home or self-care (01) ==
LOC: LAB 12:52
PROVIDERS: ATTEND Physician Assistant
DX: I50.9 Heart failure, unspecified (principal); D69.6 Thrombocytopenia, unspecified; D69.3 Immune thrombocytopenic purpura; I48.91 Unspecified atrial fibrillation; R60.0 Localized edema; R54 Age-related physical debility

== ENCOUNTER → 2021-08-26 | Outpatient (CLI) | payer MEDICARE | LOC: WOUNDCARE 03:48 | PROVIDERS: ATTEND Nurse Practitioner Family | DX: L97.822 Non-pressure chronic ulcer of other part of left lower leg with fat layer exposed (principal); I89.0 Lymphedema, not elsewhere classified; I87.8 Other specified disorders of veins; I11.0 Hypertensive heart disease with heart failure; I50.9 Heart failure, unspecified; I48.91 Unspecified atrial fibrillation; I48.20 Chronic atrial fibrillation, unspecified; E78.5 Hyperlipidemia, unspecified; E66.9 Obesity, unspecified; J43.9 Emphysema, unspecified; M19.90 Unspecified osteoarthritis, unspecified site; F32.9 Major depressive disorder, single episode, unspecified; Z90.710 Acquired absence of both cervix and uterus; Z90.49 Acquired absence of other specified parts of digestive tract; Z96.649 Presence of unspecified artificial hip joint; Z96.653 Presence of artificial knee joint, bilateral ==

== ENCOUNTER → 2021-10-21 | Outpatient (CLI) | payer MEDICARE ==
[~2021-10-21] MED LIST changes: +BUMEX2.5 MG/10 IV; +CARDIZEM CD180 MG PO; +CARDIZEM120 MG PO; +ELIQUIS2.5 M1 PO; +FERREX 150150 MG PO; +METOPROLOL SUCC50 M1 PO; +POLY-IRON 150150 MG PO; +PROMACTA50 MG PO; +REMERON15 M2 PO; +SLOW RELEASE I143 MG PO; +VIBRAMYCIN100 MG PO; +VITAMIN D250 MCG PO
[2021-10-21 12:46] LABS: HEMATOCRIT 42.3 % (37.0-47.0); MEAN CELL VOLUME 95.7 fl (81.0-99.0); MEAN CORPUSCULAR HGB 30.1 pg (27.0-31.0); MEAN CORPUSCULAR HGB CONC 31.4 g/dl (33.0-37.0); MEAN PLATELET VOLUME 13.2 fl (9.6-12.3); PLATELET COUNT AUTOMATED 111 10*3/uL (130-400); RED BLOOD COUNT 4.42 10*6/uL (4.10-5.10); RED CELL DISTRI WIDTH 13.8 % (0-14.5); WHITE BLOOD COUNT 12.7 10*3/uL (4.8-10.8)
[2021-10-21 13:05] LABS: MANUAL DIFF REFLEX YES
[2021-10-21 13:15] LABS: BASOPHILS 1 % (0-1); PLATELET SUFFICIENCY LOW (NORMAL); TOTAL CELLS COUNTED 100 #CELLS
== END ==
LOC: LAB 12:24
PROVIDERS: ATTEND Internal Medicine Hematology & Oncology
DX: D69.6 Thrombocytopenia, unspecified (principal); D69.3 Immune thrombocytopenic purpura; I50.9 Heart failure, unspecified; I48.91 Unspecified atrial fibrillation; R60.0 Localized edema; R54 Age-related physical debility

== ENCOUNTER → 2021-12-19 | Outpatient (CLI) | payer MEDICARE ==
[2021-12-19 12:20] LABS: BASO # 0.1 10*3/uL (0.0-0.1); BASO % 0.9 % (0.0-1.0); EOS # 0.2 10*3/uL (0.0-0.4); EOS % 1.8 % (1.0-4.0); HEMATOCRIT 41.8 % (37.0-47.0); LYMPH # 1.1 10*3/uL (1.3-4.4); LYMPH % 12.4 % (27.0-41.0); MEAN CELL VOLUME 96.5 fl (81.0-99.0); MEAN CORPUSCULAR HGB 29.8 pg (27.0-31.0); MEAN CORPUSCULAR HGB CONC 30.9 g/dl (33.0-37.0); MEAN PLATELET VOLUME 12.8 fl (9.6-12.3); MONO # 0.6 10*3/uL (0.1-1.0); MONO % 6.2 % (3.0-9.0); NEUT # 7.1 10*3/uL (2.3-7.9); NEUT % 77.4 % (47.0-73.0); PLATELET COUNT AUTOMATED 94 10*3/uL (130-400); RED BLOOD COUNT 4.33 10*6/uL (4.10-5.10); RED CELL DISTRI WIDTH 14.1 % (0-14.5); WHITE BLOOD COUNT 9.1 10*3/uL (4.8-10.8)
== END | disposition home or self-care (01) ==
LOC: LAB 11:54
PROVIDERS: ATTEND Internal Medicine Hematology & Oncology
DX: I50.9 Heart failure, unspecified (principal); I48.91 Unspecified atrial fibrillation; R54 Age-related physical debility; D69.3 Immune thrombocytopenic purpura; D69.6 Thrombocytopenia, unspecified

== ENCOUNTER → 2022-01-20 | Outpatient (CLI) | payer MEDICARE ==
[2022-01-20 11:58] LABS: HEMATOCRIT 43.2 % (37.0-47.0); MEAN CELL VOLUME 94.9 fl (81.0-99.0); MEAN CORPUSCULAR HGB 29.9 pg (27.0-31.0); MEAN CORPUSCULAR HGB CONC 31.5 g/dl (33.0-37.0); MEAN PLATELET VOLUME 13.6 fl (9.6-12.3); PLATELET COUNT AUTOMATED 95 10*3/uL (130-400); RED BLOOD COUNT 4.55 10*6/uL (4.10-5.10); RED CELL DISTRI WIDTH 13.6 % (0-14.5); WHITE BLOOD COUNT 8.3 10*3/uL (4.8-10.8)
[2022-01-20 12:02] LABS: MANUAL DIFF REFLEX YES
[2022-01-20 12:48] LABS: OVALOCYTES FEW; PLATELET SUFFICIENCY LOW (NORMAL); POLYCHROMASIA SLIGHT; TOTAL CELLS COUNTED 100 #CELLS
== END ==
LOC: LAB 11:16
PROVIDERS: ATTEND Internal Medicine Hematology & Oncology
DX: I50.9 Heart failure, unspecified (principal); I48.91 Unspecified atrial fibrillation; R60.0 Localized edema; R54 Age-related physical debility; D69.6 Thrombocytopenia, unspecified; D69.3 Immune thrombocytopenic purpura

== ENCOUNTER → 2022-05-28 | Outpatient (CLI) | payer MEDICARE | END | disposition home or self-care (01) | LOC: LAB 10:47 | PROVIDERS: ATTEND Internal Medicine Hematology & Oncology | DX: I50.9 Heart failure, unspecified (principal); I48.91 Unspecified atrial fibrillation; D69.6 Thrombocytopenia, unspecified; D69.3 Immune thrombocytopenic purpura; R54 Age-related physical debility; R60.0 Localized edema ==

== ENCOUNTER → 2022-05-29 | Outpatient (CLI) | payer MEDICARE ==
[2022-05-29 11:57] LABS: BASO # 0.1 10*3/uL (0.0-0.1); BASO % 0.4 % (0.0-1.0); EOS # 0.1 10*3/uL (0.0-0.4); EOS % 0.8 % (1.0-4.0); HEMATOCRIT 42.4 % (37.0-47.0); LYMPH % 8.7 % (27.0-41.0); MEAN CELL VOLUME 94.6 fl (81.0-99.0); MEAN CORPUSCULAR HGB 29.2 pg (27.0-31.0); MEAN CORPUSCULAR HGB CONC 30.9 g/dl (33.0-37.0); MEAN PLATELET VOLUME 12.2 fl (9.6-12.3); MONO # 0.6 10*3/uL (0.1-1.0); MONO % 5.1 % (3.0-9.0); NEUT # 9.4 10*3/uL (2.3-7.9); NEUT % 82.5 % (47.0-73.0); PLATELET COUNT AUTOMATED 70 10*3/uL (130-400); RED BLOOD COUNT 4.48 10*6/uL (4.10-5.10); RED CELL DISTRI WIDTH 13.5 % (0-14.5); WHITE BLOOD COUNT 11.4 10*3/uL (4.8-10.8)
== END | disposition home or self-care (01) ==
LOC: LAB 11:29
PROVIDERS: ATTEND Internal Medicine Hematology & Oncology
DX: D69.3 Immune thrombocytopenic purpura (principal); I50.9 Heart failure, unspecified; I48.91 Unspecified atrial fibrillation; R60.0 Localized edema; R54 Age-related physical debility; D69.6 Thrombocytopenia, unspecified

== ENCOUNTER → 2022-06-26 | Outpatient (CLI) | payer MEDICARE ==
[2022-06-26 14:35] LABS: HEMATOCRIT 42.2 % (37.0-47.0); MEAN CELL VOLUME 92.1 fl (81.0-99.0); MEAN CORPUSCULAR HGB 29.7 pg (27.0-31.0); MEAN CORPUSCULAR HGB CONC 32.2 g/dl (33.0-37.0); MEAN PLATELET VOLUME 12.8 fl (9.6-12.3); PLATELET COUNT AUTOMATED 138 10*3/uL (130-400); RED BLOOD COUNT 4.58 10*6/uL (4.10-5.10); RED CELL DISTRI WIDTH 13.3 % (0-14.5)
[2022-06-26 14:37] LABS: MANUAL DIFF REFLEX YES
[2022-06-26 14:55] LABS: ALKALINE PHOSPHATASE 95 U/L (46-116); BUN 35 mg/dl (9-23); CHLORIDE 101 mmol/L (98-107); CHOLESTEROL 186 mg/dL (<200); FREE T4 1.28 ng/dl (0.89-1.76); LDL CHOLESTEROL 118 mg/dL (9-159); POTASSIUM 4.4 mmol/L (3.4-5.1); THYROID STIM HORMONE (HS) 1.861 uIU/ml (0.550-4.780); TOTAL PROTEIN 7.6 gm/dL (6.0-8.0); TRIGLYCERIDES 136 mg/dl (<150)
[2022-06-26 14:56] LABS: SGPT/ALT < 7 U/L (10-49)
[2022-06-26 15:02] LABS: ATYPICAL LYMPHS 2 % (0-0); PLATELET SUFFICIENCY NORMAL (NORMAL); TOTAL CELLS COUNTED 100 #CELLS
[2022-06-26 15:03] LABS: OVALOCYTES FEW
== END | disposition home or self-care (01) ==
LOC: LAB 14:00
PROVIDERS: ATTEND Internal Medicine
DX: I10 Essential (primary) hypertension (principal); E55.9 Vitamin D deficiency, unspecified; Z13.820 Encounter for screening for osteoporosis; Z13.1 Encounter for screening for diabetes mellitus; Z13.0 Encounter for screening for diseases of the blood and blood-forming organs and certain disorders involving the immune mechanism; Z13.6 Encounter for screening for cardiovascular disorders; Z13.228 Encounter for screening for other metabolic disorders; Z13.220 Encounter for screening for lipoid disorders

== ENCOUNTER → 2022-07-17 | Outpatient (CLI) | payer MEDICARE ==
[2022-07-17 15:13] LABS: HEMATOCRIT 43.4 % (37.0-47.0); MEAN CELL VOLUME 93.3 fl (81.0-99.0); MEAN CORPUSCULAR HGB 29.5 pg (27.0-31.0); MEAN CORPUSCULAR HGB CONC 31.6 g/dl (33.0-37.0); MEAN PLATELET VOLUME 11.6 fl (9.6-12.3); PLATELET COUNT AUTOMATED 161 10*3/uL (130-400); RED BLOOD COUNT 4.65 10*6/uL (4.10-5.10); RED CELL DISTRI WIDTH 13.7 % (0-14.5); WHITE BLOOD COUNT 14.5 10*3/uL (4.8-10.8)
[2022-07-17 15:14] LABS: MANUAL DIFF REFLEX YES
[2022-07-17 15:40] LABS: PLATELET SUFFICIENCY NORMAL (NORMAL); TOTAL CELLS COUNTED 100 #CELLS
== END | disposition home or self-care (01) ==
LOC: LAB 14:42
PROVIDERS: ATTEND Internal Medicine
DX: D69.3 Immune thrombocytopenic purpura (principal)